=== PATIENT | male | born 1960 | race African-American/Black ===

== ENCOUNTER 2017-01-16 22:11 | Observation (INO) | payer OTHER, SELFPAY ==
[2017-01-16 22:53] LABS: Mean Platelet Volume 8.1 fL (7.4-10.4); Red Blood Cell (RBC) Count 3.62 mill/uL (4.70-6.10); White Blood Cell (WBC) Count 4.7 thou/uL (4.8-10.8)
[2017-01-16 22:58] LABS: Magnesium 1.8 mg/dL (1.6-2.6)
[2017-01-16 22:59] LABS: ALT (SGPT) 21 U/L (8-55); AST (SGOT) 40 U/L (5-34); Alkaline Phosphatase 56 U/L (40-150); Anion Gap 15 mmol/L (10-20); BUN (Urea Nitrogen) 10 mg/dL (8.4-25.7); Bilirubin, Total 0.4 mg/dL (0.2-1.2); Calc. Creatinine Clearance 0 mL/min (70-130); Calcium 10.1 mg/dL (7.8-10.44); Carbon Dioxide 23 mmol/L (22-29); Chloride 99 mmol/L (98-107); Estimated GFR-MDRD 77; Globulin 4.4 g/dL (2.4-3.5); Protein, Total 8.2 g/dL (6.0-8.3)
[2017-01-16 23:02] LABS: Troponin I 0.011 ng/mL (< 0.028)
--- NOTE | 2017-01-16 23:03 | RAD ---
PORTABLE AP CHEST X-RAY 01/16/17 HISTORY: Chest pain. FINDINGS: The cardiac silhouette and pulmonary vasculature are within normal limits. The lungs are clear. Ther e is focal eventration of a portion of the right hemidiaphragm. Osseous structures are intact. IMPRESSION: No acute cardiopulmonary process. POS: [facility]
[2017-01-16 23:11] LABS: Band 2 % (5-11); Neutrophil 37 % (42-75)
[2017-01-16] MEDS ORDERED: Nitroglycerin 2% Ointment 1 INCH/1 GM Packet ONE (23:15)
[2017-01-17] MEDS ORDERED: Ondansetron HCl/PF 4 MG/2 ML Vial IVP PRN ×2 (01:06→03:37)
[2017-01-17] MEDS ORDERED: Ondansetron ODT 4 MG TAB SL PRN (01:06)
[2017-01-17 02:10] LABS: Troponin I 0.012 ng/mL (< 0.028)
[2017-01-17 03:16] VITALS: BMI 27.9
[2017-01-17] MEDS ORDERED: Ondansetron ODT 4 MG TAB PO PRN (03:37)
[2017-01-17] MEDS ORDERED: cloNIDine HCl 0.1 MG TAB PO PRN (03:37)
[2017-01-17] MEDS ORDERED: Acetaminophen 500 MG TAB PO PRN (03:37)
[2017-01-17] MEDS ORDERED: Aspirin 325 MG TAB PO SCH ×2 (04:00→08:00)
--- NOTE | 2017-01-17 05:26 | HP ---
DATE OF ADMISSION: 01/17/2017 PRIMARY CARE PHYSICIAN: Rigo Daniels [place]. CHIEF COMPLAINT: Chest pain. HISTORY OF PRESENT ILLNESS: This is a 56-year-old -[place]ian male who presents to [facility] complaining of sharp burning sensation in the central portion of his chest, w hich began while lying in bed. The patient initially rated the pain as 8/10 without radiation. The patient states it lasted approximately 10-15 minutes with spontaneous resolution. The patient chari ed any specific trauma, injury, increased cough, congestion, or fever. The patient denies any recen t change to his activity level, epigastric pain, or change to bowel habits. The patient is unsure w hether he has reflux or heartburn symptoms. The patient denies any known history of coronary artery disease and states he has undergone no specific previous cardiac stress testing. The patient appar ently admits to history of hypertension but is not currently managed or treated as he has not sought followup after a recent admission to [facility] in 09/2016. In the emergenc y room, the patient underwent general evaluation receiving nitroglycerin topically in addition to as pirin 325 mg. EKG and portable chest x-ray were unremarkable. The patient was transferred to the o bservation unit for further evaluation. PAST MEDICAL HISTORY: 1. Question of diabetes mellitus type 2. 2. Hypertension, not currently treated. 3. Dyslipidemia. 4. Chronic hepatitis C. 5. Anxiety/depression. 6. Schizophrenia. 7. History of polysubstance abuse. PAST SURGICAL HISTORY: Reviewed and negative. CURRENT MEDICATIONS: Based on previous admissions 09/2016. List may not be accurate, will need to be confirmed with family members. 1. Allopurinol 100 mg 1 tab p.o. daily. 2. Lipitor 40 mg 1 tab p.o. daily. 3. Depakote ER 1000 mg p.o. b.i.d. 4. Haldol 15 mg p.o. b.i.d. 5. Hydrochlorothiazide 25 mg 1 tab p.o. daily. 6. Levothyroxine 150 mcg p.o. daily. 7. Lisinopril 40 mg p.o. daily. 8. Metoprolol tartrate 50 mg p.o. b.i.d. 9. Tegretol 200 mg p.o. b.i.d. 10. Metformin 500 mg p.o. b.i.d. ALLERGIES: No known drug allergies. FAMILY HISTORY: Positive for hypertension. SOCIAL HISTORY: Resides in [place], [place]. Unemployed. Previously incarcerated. Smokes up to half a pack of cigarettes daily. No current alcohol use. Prior history of cocaine and heroin use. No a lcohol use. REVIEW OF SYSTEMS: The following complete review of systems was negative, unless otherwise mentione d in the HPI or below: Constitutional: Weight loss or gain, sense of well-being, ability to conduc t usual activities, exercise tolerance. Skin/Breast: Rash, itching, changes in hair growth or loss , nail changes, breast lumps, tenderness, swelling, nipple discharge. Eyes: Vision, double vision, tearing, blind spots, pain. ENT/Mouth: Headaches (location, time of onset, duration, precipitatin g factors), vertigo, lightheadedness, injury. Vision, double vision, tearing, blind spots, pain, nos e bleeding, colds, obstruction, discharge, dental difficulties, gingival bleeding, dentures, neck st iffness, pain, tenderness, masses in thyroid or other areas. Cardiovascular: Precordial pain, subs ternal distress, palpitations, syncope, dyspnea on exertion, orthopnea, nocturnal paroxysmal dyspnea , edema, cyanosis, hypertension, heart murmurs, varicosities, phlebitis, claudication. Respiratory: Pain, shortness of breath, wheezing, stridor, cough, hemoptysis, fever or night sweats. Gastroint estinal: Poor appetite, dysphagia, indigestion, abdominal pain, heartburn, eructation, nausea, vomi ting, hematemesis, jaundice, constipation, or diarrhea, abnormal stools (devyn-colored, tarry, bloody , greasy, foul smelling), flatulence, hemorrhoids, recent changes in bowel habits. Genitourinary: Urgency, frequency, dysuria, nocturia, hematuria, polyuria, oliguria, unusual (or change in) color o f urine, stones, hesitancy, change in size of stream, dribbling, acute retention or incontinence, li tate, potency. Musculoskeletal: Pain, swelling, redness or heat of muscles or joints, limitation, of motion, muscu lar weakness, atrophy, cramps. Neurologic/Psychiatric: Convulsions, paralyses, tremor, incoordinat ion, paresthesias, difficulties with memory of speech, sensory or motor disturbances, or muscular co ordination (ataxia, tremor), emotional problems, anxiety, depression, previous psychiatric care, unu sual perceptions, hallucinations. Allergy/Immunologic: Skin rash, anemia, bleeding tendency, polyd ipsia, polyuria, intolerance to heat or cold. Otherwise, negative except as stated per HPI. PHYSICAL EXAMINATION: VITAL SIGNS: On admission, blood pressure 176/82, pulse 48, respiratory rate 16, temperature 97.6 degrees Fahrenheit, O2 saturation 99% on room air. GENERAL APPEARANCE: This is a 56-year-old -[place]ian male, alert and oriented x3, pleasant, a nd in no acute distress. HEENT: Pupils are equal, round, and reactive to light and accommodation. Extraocular muscles are i ntact. No scleral icterus. No conjunctival injection. Nares patent. OP is clear. Teeth in fair repair. NECK: Supple, no cervical adenopathy, no thyromegaly, no carotid bruits, no JVD appreciated. Cervi stu spine with full active and passive range of motion. CHEST: Lungs are clear to auscultation bilaterally. CARDIOVASCULAR: S1, S2, without noted murmur. ABDOMEN: Rounded, soft, nontender, nondistended. Bowel sounds are positive in all four quadrants. There is no hepatosplenomegaly, no abdominal bruits, no rebound or guarding appreciated. EXTREMITIES: Warm and dry with fair turgor. No clubbing, cyanosis, or asymmetric edema appreciated . Pulses are palpable distally at the dorsalis pedis, posterior tibial, and popliteal arteries bila terally. Capillary refill is less than 2 seconds. NEUROLOGIC: Cranial nerves II through XII are grossly intact. No focal or lateralizing signs appre ciated. PERTINENT LABORATORY AND X-RAY FINDINGS: Sodium 133, potassium 3.8, chloride 99, CO2 of 23, BUN 10, creatinine 1.17 with estimated GFR of 77, glucose 157, calcium 10.1, magnesium 1.8, AST 40, ALT of 21, alkaline phosphatase 56. Total CK 403, troponin I negative x2. Albumin 3.8. CBC showed a whit e blood cell count of 4.7, hemoglobin 11.8, hematocrit 35, MCV 97, platelet count 187 with 37% neutr ophils. Portable chest x-ray dated 01/16/2017 showed no acute cardiopulmonary process. EKG dated by my interpretation shows a sinus bradycardia with heart rates in the 50s. Attenuated R waves noted in the precordial leads. Normal axis. No acute ST-T wave changes appreciated. ASSESSMENT AND PLAN: 1. Chest pain. The patient will be observed on the telemetry unit. We will proceed with exercise Cardiolite stress testing in the a.m. Check fasting lipid profile. Continue aspirin 325 mg p.o. da shoaib. 2. Hyponatremia. Appears chronic. Likely secondary to HCTZ use. Repeat sodium level in the a.m. 3. Hypothyroidism. Check TSH and free T4 level. Resume home Synthroid regimen. 4. Chronic macrocytic anemia. Stable currently. No evidence to suggest acute blood loss. Serial monitoring. 5. Diabetes mellitus type 2. Insulin sliding scale for reflexive coverage. ADA diet. 6. Anxiety/depression/schizophrenia. Resume home regimen to include Depakote extended release 1000 mg p.o. b.i.d., Haldol 15 mg p.o. b.i.d. 7. Prophylaxis. Sequential compression devices while in bed. Pepcid 20 mg p.o. b.i.d. 8. Code status is FULL. Surrogate medical decision maker is Kinjal Amaral.
[2017-01-17] MEDS ORDERED: Levothyroxine Sodium 150 MCG TAB PO SCH (06:00)
[2017-01-17] MEDS ORDERED: carBAMazepine 200 MG TAB PO SCH (08:00)
[2017-01-17] MEDS ORDERED: Famotidine 20 MG TAB PO SCH (09:00)
[2017-01-17] MEDS ORDERED: Atorvastatin Calcium 40 MG TAB PO SCH (09:00)
[2017-01-17] MEDS ORDERED: Allopurinol 100 MG TAB PO SCH (09:00)
[2017-01-17] MEDS ORDERED: Lisinopril 20 MG TAB PO SCH (09:00)
[2017-01-17] MEDS ORDERED: Metoprolol Tartrate 50 MG TAB PO SCH (09:00)
[2017-01-17] MEDS ORDERED: Haloperidol 5 MG TAB PO SCH (09:00)
[2017-01-17] MEDS ORDERED: Hydrochlorothiazide 25 MG TAB PO SCH (09:00)
[2017-01-17 13:14] VITALS: BP 159/87; TEMP 97.8
[2017-01-17] MEDS ORDERED: ADENOSINE 60 MG/20 ML VIAL ONE (14:16)
--- NOTE | 2017-01-17 14:26 | NM ---
NUCLEAR MEDICINE CARDIAC PERFUSION EXAMINATION WITH EJECTION FRACTION: COMPARISON: None. HISTORY: A 56-year-old male with chest pain, hypertension, hyperlipidemia, and diabetes. TECHNIQUE: A single-day nuclear medicine cardiac perfusion examination was performed. Rest images were obtaine d using 10.05 mCi of Technetium 99m sestamibi. Stress images were obtained using 30 mCi of Techneti um 99m sestamibi and adenosine. FINDINGS: Tomographic images showed no fixed or reversible perfusion defects. Gated images show normal wall m otion with an ejection fraction of 67%. EDV is 111 mL. LHR is 0.4. TID is 1.05. IMPRESSION: No evidence of ischemia. POS: [facility]
--- NOTE | 2017-01-17 15:45 | DIS ---
DATE OF ADMISSION: 01/17/2017 DATE OF DISCHARGE: 01/17/2017 PRIMARY CARE PROVIDER: Zack Sierra. DISCHARGE DISPOSITION: Home. FINAL DIAGNOSES: Atypical chest pain, hypertension, diabetes mellitus type 2, schizophrenia, chroni c hepatitis C, dyslipidemia, hypothyroidism. DISCHARGE MEDICATIONS: Same as his home medicines, allopurinol 100 mg a day, aspirin 81 mg a day, a torvastatin 40 mg a day, Depakote 1000 mg twice a day, Haldol 50 mg p.o. b.i.d., hydrochlorothiazide 25 mg a day, Synthroid 150 mcg a day, lisinopril 40 mg a day, metoprolol 50 mg twice a day, Tegreto l 200 mg twice a day, Benadryl 50 mg at bedtime, metformin 500 mg twice a day. ALLERGIES: No known drug allergies, pending at the time of discharge. The patient admitted with an atypical chest pain to [facility]. Initial EKG, s inus bradycardia with no ST-T abnormality appreciated. LABORATORY AND DIAGNOSTIC DATA: Comp metabolic profile abnormal only an AST of 40, glucose 157, sod ium 133. Cardiac enzymes normal x3. Cholesterol studies: Cholesterol 138, LDL 96, HDL 25. Nuclea r medicine cardiac stress test was normal. The patient is being discharged. He has been told to fo llow up with his PCP in 1 week, Zack Sierra. CONSULTATIONS: None. PROCEDURES: None. Patient's vital signs at the time of discharge, blood pressure 135/74, pulse 63, respirations 18. C ardiorespiratory exam is normal.
== END 2017-01-17 16:01 | disposition home or self-care (01) ==
LOC: ERS 22:11 → 2SW 23:44
PROVIDERS: ADMIT Family Medicine; ATTEND Family Medicine
DX: R07.89 Other chest pain (principal); I10 Essential (primary) hypertension; B18.2 Chronic viral hepatitis C; E78.5 Hyperlipidemia, unspecified; E11.9 Type 2 diabetes mellitus without complications; E03.9 Hypothyroidism, unspecified; F20.9 Schizophrenia, unspecified; F41.9 Anxiety disorder, unspecified; F32.9 Major depressive disorder, single episode, unspecified; F17.210 Nicotine dependence, cigarettes, uncomplicated; F19.10 Other psychoactive substance abuse, uncomplicated; Z79.84 Long term (current) use of oral hypoglycemic drugs; Z79.899 Other long term (current) drug therapy
CPT/HCPCS: 36415; 36416; 71010; 78452; 80053; 80061; 82553; 83735; 84439; 84443; 84484; 85025; 93005; 93017; 94760; A9500; G0378; J0153

== ENCOUNTER 2018-02-05 15:15 | Inpatient (IN) | payer MEDICAID, OTHER ==
[2018-02-05] MEDS ORDERED: Naloxone HCl 0.4 mg/ml Vial ONE (15:40)
[2018-02-05 16:07] LABS: #Basophils 0.1 thou/uL (0.0-0.2); #Eosinphils 0.1 thou/uL (0.0-0.7); #Lymphocytes 1.2 thou/uL (1.20-3.40); #Monocytes 0.6 thou/uL (0.11-0.59); #Neutrophils 3.9 thou/uL (1.40-6.50); %Basophils 1.1 % (0.0-1.0); %Eosinophils 1.9 % (0.0-10.0); %Lymphocytes 20.9 % (21.0-51.0); %Monocytes 9.6 % (0.0-10.0); %Neutrophils 66.5 % (42.0-75.0); Hemoglobin 11.1 g/dL (14.0-18.0); Mean Corpuscular Hemoglobin 33.3 pg (27.0-31.0); Mean Platelet Volume 9.1 fL (7.4-10.4); Platelet Count 171 thou/uL (130-400); RBC Distribution Width 12.9 % (11.5-14.5); Red Blood Cell (RBC) Count 3.33 mill/uL (4.70-6.10); White Blood Cell (WBC) Count 5.8 thou/uL (4.8-10.8)
--- NOTE | 2018-02-05 16:16 | CT ---
CT OF THE BRAIN WITHOUT CONTRAST 02/05/18 COMPARISON: None. HISTORY: Altered mental status. TECHNIQUE: Multiple contiguous axial images were obtained in a CT of the brain without contrast. FINDINGS: The brain is normal in morphology and attenuation without focal lesions or confluent areas of infarct ion. There is no evidence of hydrocephalus, intracranial hemorrhage or extra-axial fluid collections. The calvarium and overlying soft tissues are unremarkable. The visualized paranasal sinuses and masto id air cells are well aerated. IMPRESSION: No evidence of acute intracranial abnormality. POS: [facility]
--- NOTE | 2018-02-05 16:19 | RAD ---
SINGLE VIEW CHEST: Date: 02/05/18 COMPARISON: 01/16/17. HISTORY: Back pain for 5 days. FINDINGS: Single view of the chest shows normal sized cardiomediastinal silhouette. There is no evidence of con solidation, mass, or pleural effusion. The bones are unremarkable. IMPRESSION: No evidence of acute cardiopulmonary disease. POS: [facility]
[2018-02-05 16:28] LABS: ALT (SGPT) 28 U/L (8-55); AST (SGOT) 81 U/L (5-34); Albumin 4.2 g/dL (3.5-5.0); Alkaline Phosphatase 50 U/L (40-150); Anion Gap 17 mmol/L (10-20); BUN (Urea Nitrogen) 51 mg/dL (8.4-25.7); Calc. Creatinine Clearance 0 mL/min (70-130); Calcium 10.1 mg/dL (7.8-10.44); Carbon Dioxide 17 mmol/L (22-29); Chloride 105 mmol/L (98-107); Estimated GFR-MDRD 28; Globulin 4.3 g/dL (2.4-3.5); Glucose 73 mg/dL (70-105); Potassium 4.9 mmol/L (3.5-5.1); Protein, Total 8.5 g/dL (6.0-8.3); Sodium 134 mmol/L (136-145)
[2018-02-05 16:32] LABS: Bilirubin Small (Negative); Blood, Urine Small (Negative); Clarity CLEAR (Clear); Glucose, Urine (Dipstick) Negative (Negative); Leukocyte Trace (Negative); Nitrite Negative (Negative); Protein, Urine (Dipstick) Negative (Neg-Trace); Specific Gravity, Urine 1.021 (1.002-1.036); pH, Urine 5.5 (5.0-9.0)
[2018-02-05 16:35] LABS: Bacteria/HPF None Seen HPF (None Seen); Pathc Cast-AUWi Flag 0.72 (0-2.49); RBC/HPF 0-3 HPF (0-3); Squamous Epithelial 0-3 HPF (0-3); WBC/HPF 0-3 HPF (0-3)
[2018-02-05 16:42] LABS: Amphetamine Not Detected (NotDetected); Barbiturates Screen Not Detected (NotDetected); Benzodiazepine Screen Not Detected (NotDetected); Cocaine Metabolite Screen Not Detected (NotDetected); Medtox Control Line Valid? VALID (VALID); Medtox Reader # READER 1; Methadone Not Detected (NotDetected); Methamphetamine Not Detected (NotDetected); Opiate Screen Not Detected (NotDetected); Oxycodone Screen Not Detected (NotDetected); Phencyclidine (PCP) Not Detected (NotDetected); THC/Cannabinoid Screen Not Detected (NotDetected); Tricyclic Screen Not Detected (NotDetected)
[2018-02-05 16:47] LABS: Transitional Epithelial 0-3 HPF (0-3)
[2018-02-05 17:21] LABS: Acetaminophen Less than 6.0 mcg/mL (10.0-30.0); Alcohol Less than 10 mg/dL (Less than 10); CK (CPK) 2293 U/L (30-200); Salicylate Less than 8.0 mg/dL (15.0-30.0)
[2018-02-05] MEDS ORDERED: Ondansetron PF 4 MG/2 ML Vial IVP PRN (20:04)
[2018-02-05] MEDS ORDERED: Dextrose 5% in Water 1,000 ML IV PRN (20:04)
[2018-02-05] MEDS ORDERED: HumaLOG 300 UNITS/3 ML VIAL SC PRN ×2 (20:04)
[2018-02-05] MEDS ORDERED: Lorazepam 2 MG/ML VIAL SLOW IVP PRN (20:04)
[2018-02-05] MEDS ORDERED: Ondansetron ODT 4 MG TAB PO PRN (20:04)
[2018-02-05] MEDS ORDERED: hydrALAZINE 20 MG/ML VIAL SLOW IVP PRN ×2 (20:04→22:38)
[2018-02-05] MEDS ORDERED: Dextrose 50% Abboject 50 ML SYRINGE SLOW IVP PRN (20:04)
[2018-02-05] MEDS ORDERED: Acetaminophen 500 MG TAB PO PRN (20:04)
[2018-02-05] MEDS ORDERED: cloNIDine 0.1 MG TAB PO PRN (20:04)
[2018-02-05] MEDS ORDERED: Famotidine 20 MG TAB PO SCH (21:00)
[2018-02-05] MEDS: Sodium Chloride 0.9% 1,000 ML IV SCH (21:23)
[2018-02-05] MEDS: Famotidine 20 MG TAB PO SCH (21:24)
[2018-02-05] MEDS ORDERED: Divalproex Sodium DR 500 MG TAB PO SCH (22:45)
[2018-02-05] MEDS ORDERED: OLANZapine 5 MG TAB PO SCH (22:45)
--- NOTE | 2018-02-06 01:05 | HP ---
DATE OF ADMISSION: 02/05/2018 PRIMARY CARE PHYSICIAN: Jeremiah in [place], [place]. CHIEF COMPLAINT: Altered mentation. HISTORY OF PRESENT ILLNESS: This is a 57-year-old -[place]ian male who presents to [facility] Emergency Department after family noted the patient confused and difficult to arouse. The hi story is mainly obtained after discussions with the emergency room attending as well as review of the electronic medical record and nursing staff as the patient exhibits confusion and disorientation. T he patient reports no specific injury, change to medication regimen, illicit drug use or alcohol pablo stion. Apparently, the patient lives with his sister in [place], [place] and is currently on parole. Th e sister noted the patient walking with an unusual gait, stooped over and having difficulty ambulatin g. The patient apparently became more confused and difficult to arouse at which point EMS personnel were notified. The patient does not recall arriving to the emergency room or events transpiring just prior to this evaluation. Initially in the emergency room, patient was noted with a [place] coma sc ana paula of 11 increasing to 13 during his evaluation in the emergency room. The patient underwent evalua tion including metabolic screening including urine drug screen which was negative. The patient was n oted with elevated creatinine of 2.[address] imaging of the brain showed no acute intracranial proces s. The patient was placed on IV fluids and received Narcan with minimal response or change to mentat ion. The patient currently states he is in [place], [place] at [place] where he was born. PAST MEDICAL HISTORY: 1. Question of schizophrenia. 2. Diabetes mellitus type 2. 3. Hypertension. 4. Dyslipidemia. 5. Chronic hepatitis C. 6. Anxiety/depression. 7. History of polysubstance abuse. 8. History of alcohol abuse. 9. History of incarceration, currently on parole. PAST SURGICAL HISTORY: Reviewed and negative. CURRENT MEDICATIONS: 1. Depakote 500 mg 2 tabs p.o. b.i.d. 2. Hydrochlorothiazide 25 mg p.o. daily. 3. Lisinopril 40 mg p.o. daily. 4. Levothyroxine 150 mcg p.o. daily. 5. Olanzapine 15 mg p.o. at bedtime. 6. Aspirin 81 mg p.o. daily. 7. Metoprolol succinate 100 mg p.o. daily. 8. Ferrous sulfate 325 mg p.o. daily. ALLERGIES: No known drug allergies. FAMILY HISTORY: Positive for hypertension. SOCIAL HISTORY: Resides in [place], [place] living with his sister. Unemployed and on parole. Smokes u p to half a pack of cigarettes daily. Denies current alcohol or illicit drug use; however, with a st va prior history of illicit drug use including marijuana, amphetamines and cocaine. REVIEW OF SYSTEMS: Unobtainable due to patient's altered mentation and confusion. PHYSICAL EXAMINATION: VITAL SIGNS: Currently, blood pressure 111/62, pulse 65, respiratory rate 18, temperature 98.0 degre es Fahrenheit, O2 saturation 98% on room air. GENERAL APPEARANCE: This is a 57-year-old -[place]ian male, alert and oriented x2, pleasant, re sponse to questions, in no acute distress. HEENT: Pupils are equal, round, and reactive to light and accommodation. Extraocular muscles are in tact. No scleral icterus, no conjunctival injection. Nares patent. OP is clear. Teeth in poor rep air. NECK: Supple, no cervical adenopathy, no thyromegaly, no carotid bruits. JVD noted. Cervical spine with full active and passive range of motion. CHEST: Lungs are clear to auscultation bilaterally. CARDIOVASCULAR: S1, S2, without noted murmur, rub or gallop. ABDOMEN: Rounded, soft, nontender, nondistended. Bowel sounds are positive in all four quadrants. No hepatosplenomegaly, no abdominal bruits, no rebound or guarding appreciated. EXTREMITIES: Warm and dry with fair turgor. No clubbing, cyanosis or asymmetric edema appreciated. Pulses palpable distally at the dorsalis pedis, posterior tibial, and popliteal arteries bilaterally . Capillary refill less than 2 seconds. NEUROLOGIC: Cranial nerves II-XII are grossly intact. Not observed ambulatory during this exam. Al ert and oriented x2. PERTINENT LABORATORY AND X-RAY FINDINGS: Sodium 134, potassium 4.9, chloride 105, CO2 of 17, BUN 51, creatinine 2.81, estimated GFR of 28, glucose 73, calcium 10.1, AST 81, ALT 28, alkaline phosphatase 50, total CK 2293. Albumin 4.2. TSH 12.41. CBC showed a white blood cell count of 5.8, hemoglobin 11, hematocrit 34, platelet count 171 with 67% neutrophils. Urinalysis showed trace ketones, trace leukocyte esterase with 4-6 renal epithelial cells and 11-20 hyaline casts. Urine drug screen dated 02/05/2018 negative. Valproic acid level 116.1. Plasma alcohol level less than 10. CT of the brain without contrast dated 02/05/2018 showed no acute intracranial process. Portable chest x-ray dated 02/05/2018 showed no acute cardiopulmonary process. EKG dated 02/05/2018 by my interpretation shows sinus mechanism with heart rates in the 60s. Attenuated R waves noted in the precordial leads. Norm al axis. No acute ST-T wave changes noted. ASSESSMENT AND PLAN: 1. Acute encephalopathy. Likely metabolic in nature. We will continue to monitor clinical response to supportive measures. We will continue IV fluids with normal saline at 100 mL per hour. Continue serial neuro checks. Check free T4 level and magnesium level. Questionable influence from known ps ychiatric diagnosis. 2. Acute kidney injury. We will continue intravenous normal saline 100 mL per hour. Avoid nephroto xic agents and limit contrast exposure. Repeat creatinine in the a.m. 3. Metabolic acidosis. Suspect secondarily to #2. We will continue IV fluids as outlined previousl y and repeat CO2 level in the a.m. 4. Rhabdomyolysis. Etiology unclear. We will continue IV fluids as outlined previously and monitor total creatine kinase trend. 5. Hypothyroidism. We will check free T4 level in the a.m. Confirm home levothyroxine dosing. 6. Hypertension. Confirm home antihypertensive regimen and resume blood pressure medications once c onfirmed. Clonidine and hydralazine p.r.n. 7. Prophylaxis. Sequential compression devices while in bed. Pepcid 20 mg p.o. b.i.d. 8. Physical therapy evaluation in the a.m. for functional assessment. 9. Code status is FULL. Surrogate medical decision maker is patient's sister.
[2018-02-06 02:06] VITALS: BMI 27.1
[2018-02-06 05:52] LABS: Hemoglobin A1c 5.4 % (4.0-6.0)
[2018-02-06 05:58] LABS: Band 2 % (5-11); Eosinophils 2 % (0-10); Hemoglobin 10.4 g/dL (14.0-18.0); Lymphocytes 46 % (21-51); MDiff Complete? YES; Mean Corpuscular HGB CONC 31.6 g/dL (32.0-36.0); Mean Corpuscular Hemoglobin 32.1 pg (27.0-31.0); Mean Platelet Volume 9.2 fL (7.4-10.4); Monocytes 11 % (0-10); Neutrophil 39 % (42-75); PLT Morphology Comment Appears Adequate; Platelet Count 160 thou/uL (130-400); Red Blood Cell (RBC) Count 3.24 mill/uL (4.70-6.10); White Blood Cell (WBC) Count 5.9 thou/uL (4.8-10.8)
[2018-02-06] MEDS ORDERED: Levothyroxine 150 MCG TAB PO SCH (06:00)
[2018-02-06 06:08] LABS: ALT (SGPT) 37 U/L (8-55); AST (SGOT) 151 U/L (5-34); Albumin 3.5 g/dL (3.5-5.0); Alkaline Phosphatase 44 U/L (40-150); Anion Gap 13 mmol/L (10-20); BUN (Urea Nitrogen) 45 mg/dL (8.4-25.7); Bilirubin, Total 1.1 mg/dL (0.2-1.2); Calc. Creatinine Clearance 56 mL/min (70-130); Calcium 9.4 mg/dL (7.8-10.44); Carbon Dioxide 20 mmol/L (22-29); Chloride 107 mmol/L (98-107); Estimated GFR-MDRD 49; Globulin 3.3 g/dL (2.4-3.5); Glucose 84 mg/dL (70-105); Magnesium 2.4 mg/dL (1.6-2.6); Potassium 4.7 mmol/L (3.5-5.1); Protein, Total 6.8 g/dL (6.0-8.3); Sodium 135 mmol/L (136-145)
[2018-02-06 06:24] LABS: CK (CPK) 7828 U/L (30-200)
[2018-02-06] MEDS: Sodium Chloride 0.9% 1,000 ML IV SCH ×2 (08:42→20:50)
[2018-02-06] MEDS: Ferrous Sulfate 325 MG TAB PO SCH (08:42)
[2018-02-06] MEDS: Metoprolol Tartrate 100 MG TAB PO SCH (08:42)
[2018-02-06] MEDS ORDERED: Prevnar 13-Val Conj/PF 0.5 ML SYRINGE IM ONE (09:00)
[2018-02-06] MEDS ORDERED: Divalproex Sodium DR 500 MG TAB PO SCH (09:00)
[2018-02-06] MEDS ORDERED: Aspirin 81 mg Enteric Coated Tablet PO SCH (09:00)
--- NOTE | 2018-02-06 11:27 | PDOC.PN ---
- Subjective Encounter Start Date: 02/06/18 Encounter Start Time: 11:15 Subjective: f/u for encephalopathy of unclear etiology, rhabdomyolysis and JOEL. -: Feels better overall and mentally clearer today. Appetite ok. Wants to -: go outside and smoke. - Objective Resuscitation Status: Resuscitation Status FULL:Full Resuscitation MAR Reviewed: Yes Vital Signs & Weight: Vital Signs (12 hours) Temp Pulse Resp BP Pulse Ox 02/06/18 08:00 95 02/06/18 07:36 98.8 F 65 16 119/59 L 95 02/06/18 04:00 97.5 F L 63 18 116/63 98 02/06/18 00:00 97.8 F 68 16 109/68 98 Weight Weight 189 lb 8 oz Result Diagrams: 02/06/18 05:10 02/06/18 05:10 Additional Labs: Accuchecks 02/06/18 02/06/18 02/05/18 10:40 05:58 21:50 POC Glucose 104 95 139 H 02/05/18 15:31 POC Glucose 81 Laboratory Tests 02/05/18 02/05/18 02/05/18 15:58 15:58 15:58 Hgb 11.1 L MCV 101.0 H Carbon Dioxide 17 L Creatinine 2.81 H Hemoglobin A1c Magnesium Ammonia Creatine Kinase TSH 3rd Generation 12.4088 H Valproic Acid 02/05/18 02/05/18 02/05/18 15:58 16:20 17:10 Hgb MCV Carbon Dioxide Creatinine Hemoglobin A1c Magnesium Ammonia 35 Creatine Kinase 2293 H TSH 3rd Generation Valproic Acid 116.1 H 02/06/18 02/06/18 05:10 05:10 Hgb MCV Carbon Dioxide Creatinine Hemoglobin A1c 5.4 Magnesium 2.4 Ammonia Creatine Kinase 7828 H TSH 3rd Generation Valproic Acid EKG Reviewed by me: Yes (Tele - SR) Phys Exam - Physical Examination Constitutional: NAD HEENT: PERRLA, sclera anicteric, oral pharynx no lesions Neck: no nodes, no JVD, supple, full ROM Respiratory: no wheezing, no rales, no rhonchi, clear to auscultation bilateral S1, S2 Cardiovascular: RRR, no significant murmur, no rub, gallop Gastrointestinal: soft, non-tender, no distention, positive bowel sounds Musculoskeletal: no edema, pulses present Neurological: normal sensation, moves all 4 limbs Psychiatric: A&O x 3 Skin: no rash, normal turgor, cap refill <2 seconds Dx/Plan (1) Acute metabolic encephalopathy Code(s): G93.41 - METABOLIC ENCEPHALOPATHY Status: Acute Comment: ? etiology and likely multifactorial given dehydration and metabolic influence, improved, continue supportive mgmt (2) Dehydration Code(s): E86.0 - DEHYDRATION Status: Acute Comment: continue IVF's, encourage increased po free-H2O intake (3) Rhabdomyolysis Code(s): M62.82 - RHABDOMYOLYSIS Status: Acute Comment: ? etiology, ? falls , continue IVF's, repeat CK level at 1500 today and in am (4) JOEL (acute kidney injury) Code(s): N17.9 - ACUTE KIDNEY FAILURE, UNSPECIFIED Status: Acute Comment: Improved, continue IVF's, avoid nephrotoxic meds and limit contrast exposure (5) Metabolic acidosis Code(s): E87.2 - ACIDOSIS Status: Acute Comment: Improved, due to JOEL (6) Anxiety and depression Code(s): F41.9 - ANXIETY DISORDER, UNSPECIFIED; F32.9 - MAJOR DEPRESSIVE DISORDER, SINGLE EPISODE, UNSPECIFIED Status: Chronic Comment: Resume home psychotropes (7) Hypertension Code(s): I10 - ESSENTIAL (PRIMARY) HYPERTENSION Status: Chronic Qualifiers: Hypertension type: essential hypertension Qualified Code(s): I10 - Essential (primary) hypertension Comment: Stable, resume home BP regimen but hold HCTZ, Lisinopril (8) Hypothyroidism Code(s): E03.9 - HYPOTHYROIDISM, UNSPECIFIED Status: Chronic Comment: ? control with current Levothyroxine dose, check FT4 level - Plan PT/OT, social sciences lecturer, out of bed/ambulate Stable currently -: Hold HCTZ and Lisinopril -: OOB/ambulate -: Continue IVF NS 100ml/h -: AM lab: BMP, CK, FT4 * .
[2018-02-06] MEDS: Famotidine 20 MG TAB PO SCH (20:51)
[2018-02-06] MEDS ORDERED: OLANZAPINE 15 MG PO SCH (21:00)
[2018-02-06] MEDS ORDERED: OLANZapine 5 MG TAB PO SCH (21:00)
[2018-02-07 05:46] LABS: Anion Gap 13 mmol/L (10-20); BUN (Urea Nitrogen) Less than 4 mg/dL (8.4-25.7); Calc. Creatinine Clearance 77 mL/min (70-130); Carbon Dioxide 21 mmol/L (22-29); Chloride 104 mmol/L (98-107); Estimated GFR-MDRD 71; Glucose 91 mg/dL (70-105); Potassium 4.4 mmol/L (3.5-5.1); Sodium 134 mmol/L (136-145)
[2018-02-07 05:59] LABS: CK (CPK) 7360 U/L (30-200)
[2018-02-07 06:21] LABS: Hypochromia SLIGHT = 6-15 cells (100X) (0-5/hpf); Lymphocytes 70 % (21-51); MDiff Complete? YES; Macrocytosis SLIGHT = 6-15 cells (100X) (0-5/hpf); Mean Corpuscular HGB CONC 32.3 g/dL (32.0-36.0); Mean Corpuscular Hemoglobin 32.6 pg (27.0-31.0); Monocytes 4 % (0-10); Neutrophil 26 % (42-75); PLT Morphology Comment Appears Adequate; Platelet Count 160 thou/uL (130-400); Polychromasia SLIGHT = 2-3 cells (100X) (0-2/hpf); RBC Distribution Width 12.8 % (11.5-14.5); Red Blood Cell (RBC) Count 3.38 mill/uL (4.70-6.10); White Blood Cell (WBC) Count 4.2 thou/uL (4.8-10.8)
--- NOTE | 2018-02-07 07:40 | CON ---
DATE OF CONSULTATION: 02/06/2018 NEPHROLOGY CONSULTATION CONSULTING PHYSICIAN: Dr. Dylan Back. REASON FOR CONSULTATION: Acute kidney injury. REASON FOR ADMISSION: Altered mentation. HISTORY OF PRESENT ILLNESS: A 57-year-old male with history of schizophrenia, type 2 diabetes, hyper tension came to the hospital with altered mentation and was found to have elevated creatinine and Nep hrology is consulted. Patient's creatinine was 2.8, he got better to 1.7 with hydration. Patient is feeling better. No nausea, vomiting, no chest pain, palpitation. PAST MEDICAL HISTORY: Positive for schizophrenia, type 2 diabetes, hypertension, hyperlipidemia, hep atitis C, anxiety, depression, polysubstance abuse, alcohol abuse. PAST SURGICAL HISTORY: None. CURRENT MEDICATIONS: Depakote, hydrochlorothiazide, lisinopril, levothyroxine, olanzapine, aspirin, metoprolol, ferrous sulfate. ALLERGIES: No known drug allergies. FAMILY HISTORY: Positive for hypertension. SOCIAL HISTORY: No smoking, alcohol, or illicit drug abuse. REVIEW OF SYSTEMS: The following complete review of systems was negative, unless otherwise mentioned in the HPI or below: Constitutional: Weight loss or gain, ability to conduct usual activities. Sk in: Rash, itching. Eyes: Double vision, pain. ENT/Mouth: Nose bleeding, neck stiffness, pain, te nderness. Cardiovascular: Palpitations, dyspnea on exertion, orthopnea. Respiratory: Shortness of breath, wheezing, cough, hemoptysis, fever, or night sweats. Gastrointestinal: Poor appetite, abdo mercedes pain, heartburn, nausea, vomiting, constipation, or diarrhea. Genitourinary: Urgency, frequen cy, dysuria, nocturia. Musculoskeletal: Pain, swelling. Neurologic/Psychiatric: Anxiety, depressi on. Allergy/Immunologic: Skin rash, bleeding tendency. PHYSICAL EXAMINATION: GENERAL: This is a thin-built male in no apparent distress. VITAL SIGNS: Temperature 97.7, pulse 70, respirations 16, blood pressure 136/69. HEENT: Atraumatic, normocephalic. Oral mucosa is moist. NECK: Supple, no masses. HEART: S1, S2, regular. RESPIRATORY: Clear. ABDOMEN: Soft. MUSCULOSKELETAL: 1+ edema. DERMATOLOGIC: No skin rash. NEUROLOGIC: Alert, awake. PSYCHIATRIC: Normal mood and affect. LABORATORY DATA: Hemoglobin is 10.4. Potassium is 4.7, BUN is 45, creatinine 1.7. ASSESSMENT AND PLAN: 1. Acute kidney injury, much better. Continue hydration. 2. Edema, controlled. 3. Hypertension, stable. 4. Anemia, chronic. 5. Continue hydration, avoid nephrotoxins. We will follow. Thank you for the consult.
[2018-02-07] MEDS: Metoprolol Tartrate 100 MG TAB PO SCH (08:10)
[2018-02-07] MEDS: Ferrous Sulfate 325 MG TAB PO SCH (08:10)
[2018-02-07] MEDS ORDERED: Non-Formulary Item 1 EACH (Ferrous Sulfate [Ferosul] 325 MG) PO SCH (09:00)
[2018-02-07] MEDS ORDERED: Levothyroxine 150 MCG TAB PO SCH (09:00)
[2018-02-07] MEDS ORDERED: Aspirin 81 mg Enteric Coated Tablet PO SCH (09:00)
[2018-02-07] MEDS ORDERED: Metoprolol Tartrate 50 MG TAB PO SCH (09:00)
--- NOTE | 2018-02-07 10:56 | DIS ---
DATE OF ADMISSION: 02/05/2018 DATE OF DISCHARGE: 02/07/2018 DISCHARGE DIAGNOSES: 1. Acute metabolic encephalopathy, multifactorial, resolved. 2. Dehydration, resolving. 3. Acute rhabdomyolysis, multifactorial including recent fall. 4. Acute kidney injury, resolved. 5. Metabolic acidosis, secondary to acute kidney injury, resolving. 6. Anxiety/depression, stable. 7. Hypertension, stable. 8. Hypothyroidism, stable. CONSULTATIONS: Dr. Horne with Nephrology service. PERTINENT LABORATORY AND X-RAY FINDINGS: Creatinine ranged between 1.26-2.81, estimated GFR ranged b etween 28-71. Hemoglobin A1c 5.4, calcium 10.0. Magnesium level 2.4, AST 81, ALT 28, alkaline phosp hatase 50, total CK ranged between 5316-9181. TSH 12.4, free T4 level 1.19. CBC showed a hemoglobin ranging between 10.4-11.0. Urine drug screen dated 02/05/2018 showed valproic acid level 116.1. Pl asma alcohol level less than 10. CT of the brain without contrast dated 02/05/2018 showed no acute i ntracranial process. Portable chest x-ray dated 02/05/2018 showed no acute cardiopulmonary process. HOSPITAL COURSE: The patient was initially admitted to the telemetry unit after presenting with alte red mentation in the context of multiple metabolic derangements including dehydration and acute kidne y injury and status post an apparent fall. The patient was placed on IV fluids after metabolic scree miguelangel showed evidence of acute kidney injury with associated dehydration and rhabdomyolysis. The clayton ent continued on IV fluids throughout his hospital course with stabilization of renal function and im proving creatinine. The patient was evaluated by the Nephrology Service; however, no specific acute intervention was recommended other than IV fluid hydration. The patient's mentation had improved wit h supportive management and the patient's total CK level had improved with IV fluids. Telemetry [facility]ro [facility] showed sinus mechanism without acute arrhythmia or dysrhythmia. The patient was noted voiding appropriately, tolerating regular oral intake, and ambulating without assistance or difficulty. I richard arayae examined the patient at the time of discharge and discussed followup instructions. The patient v erbalized understanding and in agreement and ready for discharge on 02/07/2018. DISCHARGE MEDICATIONS: 1. Enteric-coated aspirin 81 mg p.o. daily. 2. Depakote ER 1000 mg p.o. b.i.d. 3. Feosol 325 mg p.o. daily. 4. Synthroid 150 mcg p.o. daily. 5. Metoprolol tartrate 100 mg p.o. daily. 6. Olanzapine 15 mg p.o. at bedtime. 7. Hydrochlorothiazide 25 mg p.o. daily, resume on 02/09/2018. 8. Lisinopril 40 mg 1 tab p.o. daily, resume on 02/09/2018. FOLLOWUP: The patient will follow up with [facility] in [place], [place], within 7 days of discharge. CONDITION ON DISCHARGE: Stable. ACTIVITY: Ad susy. DIET: Heart healthy. CODE STATUS: FULL. DISPOSITION: Home, 02/07/2018.
[2018-02-07] MEDS: Sodium Chloride 0.9% 1,000 ML IV SCH (11:18)
[2018-02-07 11:28] VITALS: BP 137/105; TEMP 97.8
--- NOTE | 2018-02-07 17:50 | PRG ---
DATE OF SERVICE: 02/07/2018 SUBJECTIVE: Patient was seen and examined at bedside and overnight events noted. Patient denies any shortness of breath or chest pain or palpitation. No history of nausea or vomiting or diarrhea or f ever or chills or cramps. OBJECTIVE: GENERAL: This is a well-built male in no apparent distress. VITAL SIGNS: Temperature 97.8, pulse 70, respiratory rate 19, blood pressure 137/104. HEENT: Atraumatic, normocephalic. Oral mucosa is moist. NECK: Supple. CARDIOVASCULAR: S1, S2 heard. Rate and rhythm regular. RESPIRATORY: Clear to auscultation. GASTROINTESTINAL: Abdomen is soft. MUSCULOSKELETAL: No tenderness. No edema. DERMATOLOGIC: No skin rash. NEUROLOGIC: Alert and awake and oriented x3. No focal neurologic deficits. Moving all the extremiti es. PSYCHIATRIC: Mood and affect normal. LABORATORY DATA: Potassium 4.4, creatinine is 1.2. ASSESSMENT AND PLAN: 1. Acute kidney injury, much better. 2. Hypertension, stable. 3. Edema. 4. Labs are stable. Avoid nephrotoxins.
== END 2018-02-07 13:35 | disposition home or self-care (01) | DRG 71 ==
LOC: ERS 15:15 → 2NO 17:20
PROVIDERS: ADMIT Family Medicine; ATTEND Family Medicine
DX: G93.41 Metabolic encephalopathy (principal); N17.9 Acute kidney failure, unspecified; M62.82 Rhabdomyolysis; E87.2 Acidosis; E03.9 Hypothyroidism, unspecified; I10 Essential (primary) hypertension; E11.9 Type 2 diabetes mellitus without complications; E78.5 Hyperlipidemia, unspecified; B18.2 Chronic viral hepatitis C; F41.9 Anxiety disorder, unspecified; F32.9 Major depressive disorder, single episode, unspecified; E86.0 Dehydration; D64.9 Anemia, unspecified
CPT/HCPCS: 36415; 36416; 51701; 70450; 71045; 80048; 80053; 80164; 80306; 80307; 81003; 81015; 82140; 82550; 83036; 83735; 84439; 84443; 85007; 85025; 85027; 90471; 90686; 93005; 94760; 96361; 96374; G0008; G8978-GP-CL; G8979-GP-CK; J2310

== ENCOUNTER 2018-02-10 12:54 | Emergency (ER) | payer OTHER ==
[2018-02-10 14:08] LABS: Hemoglobin 10.2 g/dL (14.0-18.0); Mean Corpuscular HGB CONC 32.6 g/dL (32.0-36.0); Mean Corpuscular Hemoglobin 33.1 pg (27.0-31.0); Mean Platelet Volume 8.9 fL (7.4-10.4); Platelet Count 143 thou/uL (130-400); RBC Distribution Width 12.7 % (11.5-14.5); Red Blood Cell (RBC) Count 3.08 mill/uL (4.70-6.10); White Blood Cell (WBC) Count 4.5 thou/uL (4.8-10.8)
[2018-02-10 14:19] LABS: Band 2 % (5-11); Eosinophils 3 % (0-10); Lymphocytes 36 % (21-51); MDiff Complete? YES; Macrocytosis SLIGHT = 6-15 cells (100X) (0-5/hpf); Monocytes 7 % (0-10); Neutrophil 52 % (42-75); Ovalocytes SLIGHT = 2-5 cells (100X) (0-1/hpf); PLT Morphology Comment Appears Adequate; Polychromasia SLIGHT = 2-3 cells (100X) (0-2/hpf); Tear Drops SLIGHT = 2-5 cells (100X) (0-1/hpf)
[2018-02-10 14:25] LABS: Troponin I Less than 0.010 ng/mL (< 0.028)
[2018-02-10 14:27] LABS: CKMB 48.6 ng/mL (0-6.6)
[2018-02-10 14:28] LABS: ALT (SGPT) 44 U/L (8-55); AST (SGOT) 99 U/L (5-34); Albumin 3.7 g/dL (3.5-5.0); Alkaline Phosphatase 46 U/L (40-150); Anion Gap 12 mmol/L (10-20); BUN (Urea Nitrogen) 17 mg/dL (8.4-25.7); Bilirubin, Total 0.9 mg/dL (0.2-1.2); Calc. Creatinine Clearance 0 mL/min (70-130); Calcium 9.9 mg/dL (7.8-10.44); Carbon Dioxide 22 mmol/L (22-29); Chloride 102 mmol/L (98-107); Estimated GFR-MDRD 72; Globulin 3.6 g/dL (2.4-3.5); Glucose 87 mg/dL (70-105); Lipase 82 U/L (8-78); Potassium 4.4 mmol/L (3.5-5.1); Protein, Total 7.3 g/dL (6.0-8.3); Sodium 132 mmol/L (136-145)
--- NOTE | 2018-02-10 14:32 | RAD ---
PORTABLE AP CHEST RADIOGRAPH: Date: 02-10-18 History: Chest pain. Patient has pressure in the chest with onset of symptoms this morning. Comparison: 02-05-18 FINDINGS: This examination was obtained in a better depth of inspiration. The lungs are clear on today's exam. The cardiac silhouette and pulmonary vasculature are within normal limits. Osseous structures are int act. IMPRESSION: No acute cardiopulmonary process. POS: [facility]
== END 2018-02-10 15:30 | disposition home or self-care (01) ==
LOC: ERS 12:54
DX: R51 Headache (principal); R07.9 Chest pain, unspecified; G25.1 Drug-induced tremor; T43.4X5A Adverse effect of butyrophenone and thiothixene neuroleptics, initial encounter; E11.9 Type 2 diabetes mellitus without complications; I10 Essential (primary) hypertension; F32.9 Major depressive disorder, single episode, unspecified; F41.9 Anxiety disorder, unspecified; F20.9 Schizophrenia, unspecified; F17.210 Nicotine dependence, cigarettes, uncomplicated
CPT/HCPCS: 36415; 71045; 80053; 82553; 83690; 84484; 85025; 93005

== ENCOUNTER 2018-02-13 19:19 | Emergency (ER) | payer OTHER ==
[2018-02-13 20:46] LABS: Bilirubin Negative (Negative); Blood, Urine Negative (Negative); Clarity CLEAR (Clear); Glucose, Urine (Dipstick) Negative (Negative); Leukocyte Negative (Negative); Nitrite Negative (Negative); Protein, Urine (Dipstick) Negative (Neg-Trace); Specific Gravity, Urine 1.009 (1.002-1.036); pH, Urine 5.5 (5.0-9.0)
[2018-02-13 20:59] LABS: Amphetamine Not Detected (NotDetected); Barbiturates Screen Not Detected (NotDetected); Benzodiazepine Screen Not Detected (NotDetected); Cocaine Metabolite Screen Not Detected (NotDetected); Medtox Control Line Valid? VALID (VALID); Medtox Reader # READER 1; Methadone Not Detected (NotDetected); Methamphetamine Not Detected (NotDetected); Opiate Screen Not Detected (NotDetected); Oxycodone Screen Not Detected (NotDetected); Phencyclidine (PCP) Not Detected (NotDetected); THC/Cannabinoid Screen Not Detected (NotDetected); Tricyclic Screen Not Detected (NotDetected)
[2018-02-13 21:12] LABS: Hemoglobin 11.1 g/dL (14.0-18.0); Mean Corpuscular HGB CONC 32.2 g/dL (32.0-36.0); Mean Corpuscular Hemoglobin 32.9 pg (27.0-31.0); Mean Platelet Volume 8.4 fL (7.4-10.4); Platelet Count 197 thou/uL (130-400); RBC Distribution Width 12.9 % (11.5-14.5); Red Blood Cell (RBC) Count 3.38 mill/uL (4.70-6.10); White Blood Cell (WBC) Count 5.4 thou/uL (4.8-10.8)
[2018-02-13 21:29] LABS: ALT (SGPT) 32 U/L (8-55); AST (SGOT) 71 U/L (5-34); Albumin 3.9 g/dL (3.5-5.0); Alkaline Phosphatase 48 U/L (40-150); Anion Gap 13 mmol/L (10-20); BUN (Urea Nitrogen) 20 mg/dL (8.4-25.7); Bilirubin, Total 0.7 mg/dL (0.2-1.2); CK (CPK) 1773 U/L (30-200); Calc. Creatinine Clearance 0 mL/min (70-130); Calcium 9.8 mg/dL (7.8-10.44); Carbon Dioxide 21 mmol/L (22-29); Chloride 101 mmol/L (98-107); Estimated GFR-MDRD 58; Globulin 4.2 g/dL (2.4-3.5); Glucose 76 mg/dL (70-105); Protein, Total 8.1 g/dL (6.0-8.3); Sodium 131 mmol/L (136-145)
[2018-02-13 21:37] LABS: Band 2 % (5-11); Lymphocytes 52 % (21-51); MDiff Complete? YES; Monocytes 11 % (0-10); Neutrophil 35 % (42-75); PLT Morphology Comment Appears Adequate
[2018-02-13 22:12] LABS: Acetaminophen Less than 6.0 mcg/mL (10.0-30.0); Alcohol Less than 10 mg/dL (Less than 10); Salicylate Less than 8.0 mg/dL (15.0-30.0)
[2018-02-14] MEDS ORDERED: diphenhydrAMINE 25 MG CAP ONE (03:29)
[2018-02-14] MEDS ORDERED: Ketorolac Tromethamine 30 MG/ML VIAL ONE (07:27)
[2018-02-14 11:29] LABS: Free T4 (Free Thyroxine) 1.06 ng/dL (0.70-1.48)
== END 2018-02-14 14:18 | disposition psychiatric hospital, planned readmission (93) ==
LOC: ERS 19:19 → EEVIPCON 19:19 → ERS 02-14 14:18
DX: F23 Brief psychotic disorder (principal); E11.9 Type 2 diabetes mellitus without complications; B19.20 Unspecified viral hepatitis C without hepatic coma; I10 Essential (primary) hypertension; F41.9 Anxiety disorder, unspecified; F32.9 Major depressive disorder, single episode, unspecified; F17.210 Nicotine dependence, cigarettes, uncomplicated
CPT/HCPCS: 36415; 80053; 80164; 80306; 80307; 81003; 82550; 84439; 84443; 84481; 85025; 96360; 96361; 96374; J1885

== ENCOUNTER 2018-03-08 11:13 | Emergency (ER) | payer OTHER ==
[2018-03-08 12:05] LABS: Hemoglobin 10.4 g/dL (14.0-18.0); Mean Corpuscular HGB CONC 33.7 g/dL (32.0-36.0); Mean Corpuscular Hemoglobin 33.4 pg (27.0-31.0); Mean Platelet Volume 7.8 fL (7.4-10.4); Platelet Count 256 thou/uL (130-400); RBC Distribution Width 11.9 % (11.5-14.5); Red Blood Cell (RBC) Count 3.13 mill/uL (4.70-6.10); White Blood Cell (WBC) Count 4.3 thou/uL (4.8-10.8)
[2018-03-08 12:22] LABS: ALT (SGPT) 15 U/L (8-55); AST (SGOT) 34 U/L (5-34); Acetaminophen Less than 6.0 mcg/mL (10.0-30.0); Albumin 3.9 g/dL (3.5-5.0); Alcohol Less than 10 mg/dL (Less than 10); Alkaline Phosphatase 52 U/L (40-150); Anion Gap 13 mmol/L (10-20); BUN (Urea Nitrogen) 14 mg/dL (8.4-25.7); Bilirubin, Total 0.5 mg/dL (0.2-1.2); CK (CPK) 380 U/L (30-200); Calc. Creatinine Clearance 0 mL/min (70-130); Calcium 10.2 mg/dL (7.8-10.44); Carbon Dioxide 23 mmol/L (22-29); Chloride 105 mmol/L (98-107); Estimated GFR-MDRD Greater than 90; Globulin 4.1 g/dL (2.4-3.5); Glucose 90 mg/dL (70-105); Potassium 4.2 mmol/L (3.5-5.1); Salicylate Less than 8.0 mg/dL (15.0-30.0); Sodium 137 mmol/L (136-145)
[2018-03-08 12:30] LABS: Band 1 % (5-11); Eosinophils 2 % (0-10); Hypochromia SLIGHT = 6-15 cells (100X) (0-5/hpf); Lymphocytes 16 % (21-51); MDiff Complete? YES; Macrocytosis MODERATE=16-30 cells (100X) (0-5/hpf); Microcytosis SLIGHT = 6-15 cells (100X) (0-5/hpf); Monocytes 22 % (0-10); Neutrophil 53 % (42-75); PLT Morphology Comment Appears Adequate; Polychromasia SLIGHT = 2-3 cells (100X) (0-2/hpf); Reactive Lymphocytes 6 % (0-10); Target Cells SLIGHT = 2-5 cells (100X) (0-1/hpf)
[2018-03-08 13:48] LABS: Bilirubin Negative (Negative); Blood, Urine Negative (Negative); Clarity CLEAR (Clear); Glucose, Urine (Dipstick) Negative (Negative); Leukocyte Negative (Negative); Nitrite Negative (Negative); Protein, Urine (Dipstick) Negative (Neg-Trace); Specific Gravity, Urine 1.016 (1.002-1.036)
[2018-03-08 13:57] LABS: Amphetamine Not Detected (NotDetected); Barbiturates Screen Not Detected (NotDetected); Benzodiazepine Screen Not Detected (NotDetected); Cocaine Metabolite Screen Not Detected (NotDetected); Medtox Control Line Valid? VALID (VALID); Medtox Reader # READER 4; Methadone Not Detected (NotDetected); Methamphetamine Not Detected (NotDetected); Opiate Screen Not Detected (NotDetected); Oxycodone Screen Not Detected (NotDetected); Phencyclidine (PCP) Not Detected (NotDetected); THC/Cannabinoid Screen Not Detected (NotDetected); Tricyclic Screen Not Detected (NotDetected)
== END 2018-03-08 21:37 ==
LOC: ERS 11:13
DX: R45.851 Suicidal ideations (principal); E11.9 Type 2 diabetes mellitus without complications; I10 Essential (primary) hypertension; F41.9 Anxiety disorder, unspecified; F32.9 Major depressive disorder, single episode, unspecified; F20.9 Schizophrenia, unspecified; F17.210 Nicotine dependence, cigarettes, uncomplicated; Z79.899 Other long term (current) drug therapy; Z79.82 Long term (current) use of aspirin
CPT/HCPCS: 36415; 80053; 80306; 80307; 81003; 82550; 84443; 85025; 93005

== ENCOUNTER 2018-04-12 03:17 | Observation (INO) | payer OTHER ==
[2018-04-12 04:47] LABS: Hemoglobin 11.2 g/dL (14.0-18.0); Mean Corpuscular HGB CONC 33.2 g/dL (32.0-36.0); Mean Corpuscular Hemoglobin 32.5 pg (27.0-31.0); Mean Corpuscular Volume 97.9 fL (78.0-98.0); Mean Platelet Volume 9.5 fL (7.4-10.4); Platelet Count 125 thou/uL (130-400); RBC Distribution Width 12.1 % (11.5-14.5); Red Blood Cell (RBC) Count 3.46 mill/uL (4.70-6.10); White Blood Cell (WBC) Count 4.6 thou/uL (4.8-10.8)
[2018-04-12 05:10] LABS: Band 2 % (5-11); Eosinophils 5 % (0-10); Lymphocytes 55 % (21-51); MDiff Complete? YES; Monocytes 11 % (0-10); Neutrophil 27 % (42-75); PLT Morphology Comment Appears Decreased
[2018-04-12] MEDS ORDERED: Multivitamins, Adult 10 ML, Thiamine HCl 100 MG, Folic Acid 1 MG in Dextrose 5 %-0.45 %... IV SCH (05:30)
[2018-04-12 05:37] LABS: Calcium 10.1 mg/dL (7.8-10.44); Chloride 99 mmol/L (98-107); Potassium 3.9 mmol/L (3.5-5.1); Sodium 134 mmol/L (136-145)
[2018-04-12 05:38] LABS: Globulin 3.8 g/dL (2.4-3.5); Glucose 87 mg/dL (70-105); Protein, Total 7.8 g/dL (6.0-8.3)
[2018-04-12 05:39] LABS: Carbon Dioxide 27 mmol/L (22-29)
[2018-04-12 05:40] LABS: Anion Gap 12 mmol/L (10-20); Bilirubin, Total 0.6 mg/dL (0.2-1.2)
[2018-04-12 05:41] LABS: Alkaline Phosphatase 48 U/L (40-150); Calc. Creatinine Clearance 0 mL/min (70-130); Estimated GFR-MDRD 77
[2018-04-12 05:42] LABS: BUN (Urea Nitrogen) 19 mg/dL (8.4-25.7)
[2018-04-12 05:43] LABS: AST (SGOT) 31 U/L (5-34)
[2018-04-12 05:44] LABS: ALT (SGPT) 16 U/L (8-55); Lipase 55 U/L (8-78)
[2018-04-12 05:45] LABS: Acetaminophen Less than 6.0 mcg/mL (10.0-30.0); Alcohol Less than 10 mg/dL (Less than 10); Salicylate Less than 8.0 mg/dL (15.0-30.0)
--- NOTE | 2018-04-12 07:53 | RAD ---
CHEST 1 VIEW: Date: 04/12/18 HISTORY: Chest pain. COMPARISON: Radiograph dated 02/10/18. FINDINGS: Lungs are clear. No pneumothorax or effusion. Cardiac silhouette and mediastinal contours within norm al limits. IMPRESSION: No acute intrathoracic abnormality. POS: [facility]
[2018-04-12 08:12] LABS: Troponin I Less than 0.010 ng/mL (< 0.028)
[2018-04-12] MEDS ORDERED: Nitroglycerin 2% Ointment 1 INCH/1 GM Packet ONE (08:31)
[2018-04-12] MEDS ORDERED: Lorazepam 1 MG TAB PO PRN (09:24)
[2018-04-12] MEDS ORDERED: Enoxaparin Sodium 40 MG/0.4 ML SYRINGE SC SCH ×2 (09:24→09:30)
[2018-04-12] MEDS ORDERED: Morphine 4 MG/ML VIAL SLOW IVP PRN (09:27)
[2018-04-12 11:05] LABS: Bilirubin Negative (Negative); Blood, Urine Negative (Negative); Clarity CLEAR (Clear); Glucose, Urine (Dipstick) Negative (Negative); Leukocyte Negative (Negative); Nitrite Negative (Negative); Protein, Urine (Dipstick) Negative (Neg-Trace); Specific Gravity, Urine 1.009 (1.002-1.036); pH, Urine 7.5 (5.0-9.0)
--- NOTE | 2018-04-12 11:12 | HP ---
CHIEF COMPLAINT: Chest pain. HISTORY OF PRESENT ILLNESS: The patient is a 57-year-old male, who is admitted to the hospital for further management of his chest pain. Apparently, he developed chest pain early this morning. He called EMS and was transferred to the Emergency Room in [facility] in [place]. He said that the pain was mainly in the left side of the chest, lasting just few minutes, coming and going. It was not associated with any nausea or vomiting, clammy skin, or shortness of breath. Apparently, he had stress test done in 2017, which was normal and he was seen by steward/stewardess chief cargo vessel at this time. His primary care physician is Dr. Liang at [facility] and surrogate decision maker is Thomas Thomas, client solutions director from [facility]. PAST MEDICAL HISTORY: 1. Questionable schizophrenia. 2. Diabetes mellitus type 2. 3. Hypertension. 4. Dyslipidemia. 5. Chronic hepatitis C. 6. Anxiety/depression. 7. History of polysubstance abuse. 8. Alcohol abuse. 9. History of incarceration. PAST SURGICAL HISTORY: None. CURRENT MEDICATIONS: Please refer to the medications list when it is available. ALLERGIES: NONE. FAMILY HISTORY: Positive for hypertension. SOCIAL HISTORY: The patient lives with his sister. Is unemployed. Smokes up to one pack of cigarettes per day. . He drinks alcohol daily. REVIEW OF SYSTEMS: Fourteen systems were reviewed and positive symptoms only those, which mentioned in HPI. PHYSICAL EXAMINATION: VITAL SIGNS: Blood pressure is 149/102, pulse is 57, respiratory rate is 16. He is afebrile. HEENT: Head is atraumatic and normocephalic. Eyes are PERRLA. Sclerae are nonicteric. Conjunctivae pinkish. Oral mucosa is moist. NECK: Supple. LUNGS: Clear. HEART: S1, S2, somewhat bradycardic. No S3. No S4. ABDOMEN: Soft, nontender, nondistended. EXTREMITIES: No clubbing, cyanosis, or edema. NEUROLOGICAL EXAMINATION: He follows my commands. He moves all four extremities. There is no any motor deficit. Cranial nerves are intact. LABORATORY DATA: Showed white count of 4.6, hemoglobin of 11.2, hematocrit 33.9, and platelet count 125,000, 55% of lymphocytes and 27 neutrophils. Sodium of 134. The rest of chemistry within normal limits. Toxicology shows salicylates less than 8.0, acetaminophen less than 6.0, and plasma alcohol less than 10. EKG showed normal sinus rhythm with bradycardia 59 beats per minute, some Q-waves in V1 and V2 with questionable MD in the past. A chest x-ray did not reveal any acute abnormalities. Two strips of EKG, which showed 2 runs, which looks like torsades de pointes, which happened around 4:18 and 4:19 this morning. The patient was asymptomatic. IMPRESSION: 1. Chest pain, rule out acute coronary syndrome. His first troponin is negative. He had two runs of cardiac arrhythmia, which appears to be torsades de pointes. 2. Diabetes mellitus type 2. 3. Hypothyroidism. 4. Dyslipidemia. 5. Chronic hepatitis C. 6. Alcohol abuse. 7. Anxiety/depression. 8. History of polysubstance abuse. 9. History of incarceration. PLAN: Admission to Telemetry for observation. IV Hep-Lock. Aspirin 81 mg once a day. Nitroglycerin paste half an inch every 8 hours. Echocardiogram. Cardiology consultation with Dr. Tyson, who is accreditation manager today. Morphine 2 mg every 4 hours as needed. Reconcile his home medications when the list is available, and DVT prophylaxis with 40 mg of Lovenox. Job ID: [id number]
[2018-04-12 11:15] LABS: Troponin I Less than 0.010 ng/mL (< 0.028)
[2018-04-12] MEDS ORDERED: Enoxaparin Sodium 40 MG/0.4 ML SYRINGE ONE (11:39)
[2018-04-12 12:32] VITALS: BMI 27.4
[2018-04-12] MEDS: Nitroglycerin 2% Ointment 1 INCH/1 GM Packet TOP SCH ×2 (14:12→21:22)
[2018-04-12] MEDS ORDERED: Multivitamins, Adult 10 ML, Folic Acid 1 MG, Thiamine HCl 100 MG in Dextrose 5 %-0.45 %... IV SCH (17:00)
[2018-04-12] MEDS ORDERED: OLANZapine 5 MG TAB PO SCH (21:00)
[2018-04-12] MEDS: Metoprolol Tartrate 50 MG TAB PO SCH (21:20)
--- NOTE | 2018-04-12 21:45 | CON ---
DATE OF CONSULTATION: 04/12/2018 PRIMARY CARE DOCTOR: Dr. Liang, who is psychiatrist. The patient's surrogate decision maker is Mr. Thomas Thomas, who is a care worker from [facility]. The patient's primary marker maker is going to be Dr. Marga Tyson. REASON FOR CARDIOLOGY CONSULT: Sustained HISTORY OF PRESENT ILLNESS: Mr. Amaral is a 57-year-old male with significant history of questionable schizophrenia, diabetes type 2, hypertension, dyslipidemia, chronic hepatitis C, history of polysubstance abuse, alcohol, EtOH abuse, and history of incarceration and he is in parole at this time, and hypothyroidism. Last night, he took Benadryl total 150 mg prior to the bedtime, but he could not sleep and this morning around 1:30, he started having intermittent heaviness like discomfort to the left chest and eventually does radiate to the right side while he was sitting at the kitchen and making coffee. The patient denied any other cardiac complaints such as shortness of breath, dizziness, lightheadedness, fluttering in his chest, or any other complaints except that the patient has had severe cough with yellow-greenish sputum for a couple of days prior to this event. The patient had a cardiac stress test done in 01/2017, which shows no evidence of ischemia with EF of 67%. At the emergency department when the patient was about to discharge, the patient's EKG shows possible torsade de pointes; however, the EKG appeared to be sinus rhythm with artifact. At this moment, the patient reports that the discomfort includes to the left chest with palpitation. The patient denies any other cardiac complaints at this moment. PAST MEDICAL HISTORY: Schizophrenia, diabetes type 2, hypertension, dyslipidemia, chronic hepatitis C, anxiety, depression, history of polysubstance abuse, EtOH abuse, hypothyroidism, history of incarceration. PAST SURGICAL HISTORY: None. FAMILY HISTORY: Positive for hypertension in his family, but negative for any other cardiac related family history. SOCIAL HISTORY: The patient lives with his sister at this moment. He is unemployed and his sister managing his medication. He continues smoking one-third to half a pack a day. He stopped drinking beer day before yesterday. He used to drink 40 ounce of beer at least a day. ALLERGIES: NO KNOWN DRUG ALLERGIES, BUT HE IS ALLERGIC TO FRIED MACKEREL. MEDICATIONS: 1. Aspirin 81 mg once a day. 2. Metoprolol 100 mg once a day. 3. Depakote 1000 mg twice a day. 4. Levothyroxine 150 mcg once a day. 5. Feaawrkglm04 mg at night. 6. Ferrous sulfate 325 mg once a day. 7. Hydrochlorothiazide 25 mg once a day. 8. Lisinopril 40 mg once a day. REVIEW OF SYSTEMS: Twelve-point review of systems was negative unless otherwise mentioned in HPI or below. The patient is complained of hard to void and incontinent at night. He has chronic back pain due to the previous trauma to his back. PHYSICAL EXAMINATION: VITAL SIGNS: Blood pressure 147/74, pulse is 65 and sinus rhythm, temperature 97.4, respiratory rate 16, and O2 saturation 98% on room air. GENERAL: The patient is alert and oriented x4, not in acute distress. HEENT: Head, normocephalic and atraumatic. Eyes, extraocular muscle movement intact. ENT and mouth, oral and nasal mucosa moist without lesion. He can swallow pill and food very well. NECK: Supple. Normal range of motion. No JVD. Carotid pulses are present without bruit or thrill. LUNGS: Clear to auscultate bilaterally. CARDIOVASCULAR: Regular rate and rhythm. Normal S1, S2. There is no S3, S4. No significant murmurs, heaves, or thrill noted. 2+ pulses in upper and lower extremities. No edema. ABDOMEN: Soft, nontender. No mass to palpitate. Bowel sounds are positive. SKIN: Warm and dry. No lesion, rash, or hematoma noticed. EXTREMITIES: The patient is able to move all extremities without difficulties. The patient denied claudication. NEUROLOGIC: The patient is alert and orient x4. Nonfocal. PSYCHIATRIC: The patient's mood is appropriate at this moment. LABORATORY DATA: WBC 4.6, hemoglobin 11.2, hematocrit 33.9, and platelet 125. Sodium 134, potassium 3.9, BUN 19, creatinine . AST 31, ALT 16. Troponin level is negative. Magnesium 2.0. UA is negative. Chest x-ray shows no acute intrathoracic abnormalities. A 12-lead EKG at the ER shows sinus rhythm with heart rate of 59 with no evidence of ST-segment change or T-wave inversion. ASSESSMENT AND PLAN: 1. Chest pain to rule out acute coronary syndrome. The patient's troponin level was negative and the patient's last stress test in 2017 showing negative. The patient's EKG has been sinus rhythm with artifact at this moment. However, due to the history of diabetes, hypertension, and current smoking and EtOH abuse, we would like order stress test for this patient. The patient had been on Lovenox. He has been on lisinopril, metoprolol, and aspirin 81 mg once a day. 2. Hypertension. We would like to resume the patient's home medication. 3. Diabetes type 2, which is managed by primary care doctor. 4. Chronic hepatitis C, which is managed by primary care doctor. 5. Smoking and EtOH abuse. Tobacco and EtOH cessation education given to the patient. 6. Mild anemia. The patient has been on ferrous sulfate 325 mg once a day. We would like to resume that medication. 7. Hypothyroidism. We would like to resume the patient's thyroid medication. Thank you very much for allowing the Cardiology Service to participate in the care of this patient. We will follow along with the patient's care team and make further recommendations as appropriate. Job ID: [id number]
--- NOTE | 2018-04-13 01:28 | CON ---
DATE OF CONSULTATION: 04/12/2018 INDICATION FOR CONSULTATION: A 57-year-old patient with a history of some chest discomfort, while he was in the emergency room was noted to have some abnormalities on the EKG. On closer evaluation, I believe this is artifact. It was felt this may have been torsades. However, it appears to be just artifact on the EKG. He has been having some sneezing, upper respiratory tract infections, and coughing recently. His chest discomfort, it is somewhat difficult for him to describe it, but I do not see any significant acute ST-segment changes or any other problems with his EKG at this time, nor does he have any abnormalities upon the cardiac enzymes. He did have a previous workup, I believe in the past is with stress testing in 2017, which was unremarkable. He denies having seen a field map technician in the past and he cannot remember any name of field map technician recently. I do not see any notes in this computer or in this admission or from this hospital on this patient from a field map technician. At this time, he is stable. He denies any chest pain. His EKG is unremarkable. His vital signs are stable. Past medical history, please refer to the notes dictated by the nurse practitioner as well as the surgical history, medications, allergies, family history, social history, and review of systems. PHYSICAL EXAMINATION: GENERAL: Reveals a well-developed, well-nourished gentleman, who is in no acute distress at this time. He is alert and oriented. VITAL SIGNS: Show blood pressure 147/74, which actually had increased up to 163/94, heart rate is in the 70s. It shows sinus rhythm. Respiratory rate is 21, O2 saturation 98% on room air, and he is afebrile. HEENT: Shows the head to be normocephalic and atraumatic. Carotid pulses are present. There were no bruits noted. CHEST: Clear to auscultation. CARDIOVASCULAR: Reveals a regular rate and rhythm. There were no significant murmurs, heaves, thrills, bruits, or rubs. ABDOMEN: Soft, flat, and nontender. Positive bowel sounds are present. EXTREMITIES: Showed no clubbing, cyanosis, or edema. Pedal pulses are present. NEUROLOGIC: The patient appears to be intact. SKIN: Warm and dry. There were no abnormalities actually noted on the physical examination. He does mentally appear to be somewhat slow at times, but he did answer my questions appropriately, but did find it very difficult to explain his chest discomfort. LABORATORY DATA: Shows troponin I to be 0.01, which is still within normal limits. Sodium was 134, creatinine 1.18. His glucose was 87. Urinalysis was unremarkable. His hemoglobin was 11.2, WBC of 4.6, platelet count was 125. IMPRESSION: 1. Chest pain, somewhat atypical after several weeks of coughing and sneezing. This may be musculoskeletal in nature. He did have a negative stress test in 2017. We could consider repeating a stress test to determine any evidence of ischemia. Also would suggest perhaps a repeat echocardiogram. I do not see that he has had one recently performed. He has been seen also in the past by Nephrology, most recently back in February of 2018. He was seen by the manufacturing assembler due to acute kidney injury and this had improved after he was given hydration. Chest pain, which would be evaluated further. 2. Possible torsades. This appears to be more artifact. I would discuss this with the assistant financial accountant. 3. History of hypertension. We will continue to monitor him and change his medications as needed. He has been on metoprolol as well as lisinopril in the past. 4. History of psychiatric disorder with schizophrenia. 5. History of diabetes. 6. Hyperlipidemia. 7. History of hepatitis C. These will be dealt by the primary care service. Job ID: [id number]
[2018-04-13] MEDS ORDERED: Levothyroxine 150 MCG TAB PO SCH (06:00)
[2018-04-13] MEDS ORDERED: Multivitamins, Adult 10 ML, Folic Acid 1 MG, Thiamine HCl 100 MG in Dextrose 5 %-0.45 %... IV SCH (06:00)
[2018-04-13] MEDS: Nitroglycerin 2% Ointment 1 INCH/1 GM Packet TOP SCH ×2 (06:41→15:59)
[2018-04-13 07:18] LABS: Anion Gap 12 mmol/L (10-20); BUN (Urea Nitrogen) 16 mg/dL (8.4-25.7); Calc. Creatinine Clearance 84 mL/min (70-130); Calcium 10.4 mg/dL (7.8-10.44); Carbon Dioxide 25 mmol/L (22-29); Chloride 103 mmol/L (98-107); Estimated GFR-MDRD 78; Glucose 102 mg/dL (70-105); Potassium 4.3 mmol/L (3.5-5.1); Sodium 136 mmol/L (136-145)
[2018-04-13 08:15] LABS: Band 1 % (5-11); Eosinophils 10 % (0-10); Hemoglobin 12.1 g/dL (14.0-18.0); Lymphocytes 60 % (21-51); MDiff Complete? YES; Mean Corpuscular HGB CONC 33.2 g/dL (32.0-36.0); Mean Corpuscular Hemoglobin 32.4 pg (27.0-31.0); Mean Corpuscular Volume 97.5 fL (78.0-98.0); Mean Platelet Volume 9.4 fL (7.4-10.4); Monocytes 7 % (0-10); Neutrophil 22 % (42-75); Platelet Count 131 thou/uL (130-400); RBC Distribution Width 11.7 % (11.5-14.5); Red Blood Cell (RBC) Count 3.72 mill/uL (4.70-6.10)
[2018-04-13] MEDS ORDERED: Enoxaparin Sodium 40 MG/0.4 ML SYRINGE SC SCH (09:00)
[2018-04-13] MEDS ORDERED: Lisinopril 20 MG TAB PO SCH (09:00)
[2018-04-13] MEDS ORDERED: Ferrous Sulfate 325 MG TAB PO SCH (09:00)
[2018-04-13] MEDS ORDERED: Hydrochlorothiazide 25 MG TAB PO SCH (09:00)
[2018-04-13] MEDS ORDERED: Aspirin 81 mg Enteric Coated Tablet PO SCH ×2 (09:00)
[2018-04-13] MEDS ORDERED: Regadenoson 0.4 MG/5 ML SYRINGE ONE (09:25)
--- NOTE | 2018-04-13 11:35 | PDOC.CTH ---
Cardiology Progress Note - Subjective The pt seen and examined. No overnight events. No cardiac complaints. He wants to go outside for smoking. - Objective Vital Signs Temp Pulse Resp BP Pulse Ox 04/13/18 08:00 97.5 F L 58 L 16 173/79 H 99 04/13/18 04:14 97.4 F L 71 17 139/83 96 04/12/18 23:43 98.2 F 67 18 144/85 H 99 Weight 190 lb 12.8 oz 04/12/18 04/13/18 04/14/18 06:59 06:59 06:59 Intake Total 1560 Balance 1560 - Physical Examination General/Neuro: alert & oriented x3 Neck: no JVD present Lungs: CTA Heart: RRR Abdomen: soft Extremities: other: (No edema) - Telemetry Telemetry Rhythm: SR - Labs Result Diagrams: 04/13/18 06:30 04/13/18 06:30 Troponin/CKMB Troponin I Less than 0.010 ng/mL (< 0.028) 04/12/18 10:43 - Assessment/Plan 1. CP - waiting for Stress test result at this moment. Echo is normal. 2. HTN- stable 3. DM type 2 - managed by pcp 4. Current smoker - smoking cessation education given to the pt 5. chronic hep C MAR reviewed * When the pt's stress test shows normal, the pt is ok to d/c home. Pt. seen and eval. earlier today. I agree with the A/P by the FOOT ORTHOPEDIST.Chest clear. RRR. Stress test is negative for ischemia. Pt. can be d/c'd to home. F/U with medical service. Review of Systems - Review of Systems Constitutional: reports: no symptoms reported EENTM: reports: no symptoms reported Respiratory: reports: no symptoms reported Cardiac (ROS): reports: no symptoms reported ABD/GI: reports: no symptoms reported : reports: no symptoms reported Skin: reports: no symptoms reported
[2018-04-13 15:52] VITALS: BP 152/73; TEMP 98.3
[2018-04-13] MEDS: Metoprolol Tartrate 50 MG TAB PO SCH (15:59)
--- NOTE | 2018-04-13 16:10 | NM ---
NUCLEAR MEDICINE CARDIAC STRESS TEST WITH EJECTION FRACTION: HISTORY: Chest pain. Tobacco and alcohol abuse. Hyp__tension. COMPARISON: Study from 2017. TECHNIQUE: Stress and rest were performed after the intravenous administration of 28 and 10 millicuries of techn etium 99m sestamibi, respectively. FINDINGS: There is adequate left ventricular uptake of radiotracer. Normal wall motion. The calculated ejecti on fraction is 67%. No scar o ischemia. IMPRESSION: Normal examination. POS: [facility]
--- NOTE | 2018-04-14 04:40 | DIS ---
DATE OF ADMISSION: 04/12/2018 DATE OF DISCHARGE: 04/13/2018 NET DEVELOPMENT MANAGER: Dr. Tyson, Cardiology Service. FINAL DIAGNOSES: 1. Chest pain, acute coronary syndrome was ruled out. 2. Hypertension, stable. 3. Diabetes mellitus type 2. 4. Chronic hepatitis C. 5. Current smoker. HOSPITAL COURSE: The patient is a 57-year-old male, who was admitted to hospital with chest pain. It was not associated with any nausea, vomiting, clammy skin, or shortness of breath. While in the emergency room, his white count was 4.6, hemoglobin 11.2, hematocrit 33.9, platelet count 125,000, sodium was 134, alcohol level was less than 10. EKG showed normal sinus rhythm with bradycardia at 59 beats per minute and some Q-wave changes in V1 and V2. Questionable HI in the past. The chest x-ray did not reveal any acute abnormalities. Two strips of EKG showed questionable either the runs of torsades de pointes or just artifacts. The patient was asymptomatic when this happened. This happened when he was in the emergency room waiting for his bed. The patient was admitted to the hospital. Cardiology was consulted. He underwent echocardiogram, which showed normal LVEF of 65%. No any significant changes on the echo. Also, he underwent stress test which was nuclear with normal examination. His ejection fraction was estimated at 67%. There was no scar or ischemia. Clinically, he is doing well. He does not have much pain or any other complaints to offer. His blood pressure is 152/73, pulse is 66, temperature is 98.3, respirations 16, O2 saturation is 99% on room air. He was examined and evaluated before he was discharged. DISPOSITION: Home. ACTIVITY: As tolerated. DIET: Heart healthy. FOLLOWUP: He is going to follow up with primary care physician at [facility] in 1 week. TIME SPENT: The discharge time spent on this patient's discharge is less than 30 minutes. Job ID: [id number]
== END 2018-04-13 17:53 | disposition home or self-care (01) ==
LOC: ERS 03:17 → ERHOLD 06:19 → 2SW 12:41
PROVIDERS: ADMIT Internal Medicine; ATTEND Internal Medicine
DX: R07.9 Chest pain, unspecified (principal); I10 Essential (primary) hypertension; B18.2 Chronic viral hepatitis C; E78.5 Hyperlipidemia, unspecified; E11.9 Type 2 diabetes mellitus without complications; F41.9 Anxiety disorder, unspecified; F32.9 Major depressive disorder, single episode, unspecified; F10.10 Alcohol abuse, uncomplicated; F17.210 Nicotine dependence, cigarettes, uncomplicated; F20.9 Schizophrenia, unspecified; D64.9 Anemia, unspecified; Z91.013 Allergy to seafood; Z79.82 Long term (current) use of aspirin; Z79.899 Other long term (current) drug therapy
CPT/HCPCS: 36415; 71045; 78452; 80048; 80053; 80307; 81003; 83690; 83735; 84484; 85025; 93005; 93017; 93306; 96365; 96366; 96372; A9500; G0378; J1650; J2785; J3411; J7042

== ENCOUNTER 2018-04-13 22:33 | Emergency (ER) | payer OTHER ==
[2018-04-13 23:22] LABS: Acetaminophen Less than 6.0 mcg/mL (10.0-30.0); Alcohol 72 mg/dL (Less than 10); Salicylate Less than 8.0 mg/dL (15.0-30.0)
[2018-04-13 23:24] LABS: ALT (SGPT) 19 U/L (8-55); AST (SGOT) 43 U/L (5-34); Albumin 3.8 g/dL (3.5-5.0); Alkaline Phosphatase 50 U/L (40-150); Anion Gap 17 mmol/L (10-20); BUN (Urea Nitrogen) 14 mg/dL (8.4-25.7); Bilirubin, Total 0.3 mg/dL (0.2-1.2); CK (CPK) 836 U/L (30-200); Calc. Creatinine Clearance 0 mL/min (70-130); Calcium 10.1 mg/dL (7.8-10.44); Carbon Dioxide 20 mmol/L (22-29); Chloride 101 mmol/L (98-107); Estimated GFR-MDRD 86; Globulin 3.9 g/dL (2.4-3.5); Glucose 140 mg/dL (70-105); Potassium 3.6 mmol/L (3.5-5.1); Protein, Total 7.7 g/dL (6.0-8.3); Sodium 134 mmol/L (136-145)
[2018-04-13 23:27] LABS: Band 5 % (5-11); Eosinophils 2 % (0-10); Hemoglobin 11.5 g/dL (14.0-18.0); Lymphocytes 53 % (21-51); MDiff Complete? YES; Mean Corpuscular HGB CONC 35.1 g/dL (32.0-36.0); Mean Corpuscular Hemoglobin 34.5 pg (27.0-31.0); Mean Corpuscular Volume 98.1 fL (78.0-98.0); Mean Platelet Volume 9.7 fL (7.4-10.4); Monocytes 7 % (0-10); Neutrophil 33 % (42-75); PLT Morphology Comment Appears Adequate; Platelet Count 119 thou/uL (130-400); RBC Distribution Width 11.7 % (11.5-14.5); Red Blood Cell (RBC) Count 3.33 mill/uL (4.70-6.10); White Blood Cell (WBC) Count 4.3 thou/uL (4.8-10.8)
[2018-04-14 00:25] LABS: Bilirubin Negative (Negative); Blood, Urine Negative (Negative); Clarity CLEAR (Clear); Glucose, Urine (Dipstick) Negative (Negative); Leukocyte Negative (Negative); Nitrite Negative (Negative); Protein, Urine (Dipstick) Negative (Neg-Trace); Specific Gravity, Urine 1.003 (1.002-1.036); pH, Urine 6.5 (5.0-9.0)
[2018-04-14 00:41] LABS: Amphetamine Not Detected (NotDetected); Barbiturates Screen Not Detected (NotDetected); Benzodiazepine Screen Not Detected (NotDetected); Cocaine Metabolite Screen Not Detected (NotDetected); Medtox Control Line Valid? VALID (VALID); Medtox Reader # READER 4; Methadone Not Detected (NotDetected); Methamphetamine Not Detected (NotDetected); Opiate Screen Not Detected (NotDetected); Oxycodone Screen Not Detected (NotDetected); Phencyclidine (PCP) Not Detected (NotDetected); THC/Cannabinoid Screen Not Detected (NotDetected); Tricyclic Screen Not Detected (NotDetected)
== END 2018-04-14 20:19 ==
LOC: ERS 22:33
DX: F30.9 Manic episode, unspecified (principal); E11.9 Type 2 diabetes mellitus without complications; I10 Essential (primary) hypertension; F41.9 Anxiety disorder, unspecified; F20.9 Schizophrenia, unspecified; F17.200 Nicotine dependence, unspecified, uncomplicated
CPT/HCPCS: 36415; 80306; 80307; 81003; 82550; 84443; 93005

== ENCOUNTER 2018-04-25 20:50 | Emergency (ER) | payer OTHER ==
[2018-04-25 21:28] LABS: #Basophils 0.1 thou/uL (0.0-0.2); #Eosinphils 0.1 thou/uL (0.0-0.7); #Lymphocytes 2.2 thou/uL (1.20-3.40); #Monocytes 0.7 thou/uL (0.11-0.59); #Neutrophils 2.2 thou/uL (1.40-6.50); %Basophils 2.4 % (0.0-1.0); %Eosinophils 2.8 % (0.0-10.0); %Lymphocytes 41.7 % (21.0-51.0); %Monocytes 12.3 % (0.0-10.0); %Neutrophils 40.8 % (42.0-75.0); Hemoglobin 11.6 g/dL (14.0-18.0); Mean Corpuscular Hemoglobin 32.5 pg (27.0-31.0); Mean Corpuscular Volume 98.3 fL (78.0-98.0); Mean Platelet Volume 8.6 fL (7.4-10.4); Platelet Count 218 thou/uL (130-400); RBC Distribution Width 11.8 % (11.5-14.5); Red Blood Cell (RBC) Count 3.57 mill/uL (4.70-6.10); White Blood Cell (WBC) Count 5.4 thou/uL (4.8-10.8)
[2018-04-25 21:49] LABS: ALT (SGPT) 19 U/L (8-55); AST (SGOT) 39 U/L (5-34); Acetaminophen Less than 6.0 mcg/mL (10.0-30.0); Albumin 4.1 g/dL (3.5-5.0); Alcohol 91 mg/dL (Less than 10); Alkaline Phosphatase 50 U/L (40-150); Anion Gap 16 mmol/L (10-20); BUN (Urea Nitrogen) 17 mg/dL (8.4-25.7); Bilirubin, Total 0.4 mg/dL (0.2-1.2); Calc. Creatinine Clearance 0 mL/min (70-130); Calcium 10.1 mg/dL (7.8-10.44); Carbon Dioxide 21 mmol/L (22-29); Chloride 103 mmol/L (98-107); Estimated GFR-MDRD 71; Globulin 3.7 g/dL (2.4-3.5); Glucose 126 mg/dL (70-105); Potassium 3.4 mmol/L (3.5-5.1); Protein, Total 7.8 g/dL (6.0-8.3); Salicylate Less than 8.0 mg/dL (15.0-30.0); Sodium 137 mmol/L (136-145)
--- NOTE | 2018-04-25 22:00 | RAD ---
PORTABLE AP CHEST X-RAY 04/25/18 HISTORY: Chest pain. COMPARISON: 04/12/18. FINDINGS: The cardiac silhouette and pulmonary vasculature are within normal limits. There are linear densities at the left lung base which may be related to atelectasis. The lungs are otherwise clear. There has been no other interval change from the prior exam. IMPRESSION: No acute cardiopulmonary process. Linear densities are seen at the left lung base probably attributab le to mild atelectasis and vascular structures. POS: [facility]
[2018-04-26 00:07] LABS: Bilirubin Negative (Negative); Blood, Urine Negative (Negative); Clarity CLEAR (Clear); Glucose, Urine (Dipstick) Negative (Negative); Leukocyte Negative (Negative); Nitrite Negative (Negative); Protein, Urine (Dipstick) Negative (Neg-Trace); Specific Gravity, Urine 1.006 (1.002-1.036)
[2018-04-26 00:18] LABS: Amphetamine Not Detected (NotDetected); Barbiturates Screen Not Detected (NotDetected); Benzodiazepine Screen Not Detected (NotDetected); Cocaine Metabolite Screen Not Detected (NotDetected); Medtox Control Line Valid? VALID (VALID); Medtox Reader # READER 4; Methadone Not Detected (NotDetected); Methamphetamine Not Detected (NotDetected); Opiate Screen Not Detected (NotDetected); Oxycodone Screen Not Detected (NotDetected); Phencyclidine (PCP) Not Detected (NotDetected); THC/Cannabinoid Screen Not Detected (NotDetected); Tricyclic Screen Not Detected (NotDetected)
[2018-04-26] MEDS ORDERED: traZODone HCl 150 MG TAB PO SCH (01:45)
[2018-04-26] MEDS ORDERED: OLANZapine 5 MG TAB PO SCH (01:45)
== END 2018-04-26 08:02 ==
LOC: ERS 20:50
DX: R45.851 Suicidal ideations (principal); E11.9 Type 2 diabetes mellitus without complications; I10 Essential (primary) hypertension; F20.9 Schizophrenia, unspecified; F17.200 Nicotine dependence, unspecified, uncomplicated; Z79.899 Other long term (current) drug therapy
CPT/HCPCS: 36415; 51701; 71045; 80053; 80306; 80307; 81003; 84443; 84484; 85025; 93005

== ENCOUNTER 2018-05-10 04:51 | Emergency (ER) | payer OTHER ==
[2018-05-10 05:23] LABS: Bilirubin Negative (Negative); Blood, Urine Negative (Negative); Clarity CLEAR (Clear); Glucose, Urine (Dipstick) Negative (Negative); Leukocyte Negative (Negative); Nitrite Negative (Negative); Protein, Urine (Dipstick) Negative (Neg-Trace); Specific Gravity, Urine 1.011 (1.002-1.036); pH, Urine 5.5 (5.0-9.0)
[2018-05-10 05:25] LABS: #Basophils 0.1 thou/uL (0.0-0.2); #Eosinphils 0.2 thou/uL (0.0-0.7); #Lymphocytes 2.3 thou/uL (1.20-3.40); #Monocytes 0.8 thou/uL (0.11-0.59); #Neutrophils 1.8 thou/uL (1.40-6.50); %Basophils 1.3 % (0.0-1.0); %Eosinophils 3.4 % (0.0-10.0); %Monocytes 14.7 % (0.0-10.0); %Neutrophils 35.5 % (42.0-75.0); Hemoglobin 10.9 g/dL (14.0-18.0); Mean Corpuscular HGB CONC 33.7 g/dL (32.0-36.0); Mean Corpuscular Hemoglobin 32.3 pg (27.0-31.0); Mean Platelet Volume 8.1 fL (7.4-10.4); Platelet Count 195 thou/uL (130-400); RBC Distribution Width 11.7 % (11.5-14.5); Red Blood Cell (RBC) Count 3.36 mill/uL (4.70-6.10); White Blood Cell (WBC) Count 5.1 thou/uL (4.8-10.8)
[2018-05-10 05:30] LABS: Amphetamine Not Detected (NotDetected); Barbiturates Screen Not Detected (NotDetected); Benzodiazepine Screen Not Detected (NotDetected); Cocaine Metabolite Screen Not Detected (NotDetected); Medtox Control Line Valid? VALID (VALID); Medtox Reader # READER 4; Methadone Not Detected (NotDetected); Methamphetamine Not Detected (NotDetected); Opiate Screen Not Detected (NotDetected); Oxycodone Screen Not Detected (NotDetected); Phencyclidine (PCP) Not Detected (NotDetected); THC/Cannabinoid Screen Not Detected (NotDetected); Tricyclic Screen Not Detected (NotDetected)
[2018-05-10 05:47] LABS: ALT (SGPT) 22 U/L (8-55); AST (SGOT) 52 U/L (5-34); Acetaminophen Less than 6.0 mcg/mL (10.0-30.0); Albumin 4.2 g/dL (3.5-5.0); Alcohol Less than 10 mg/dL (Less than 10); Alkaline Phosphatase 48 U/L (40-150); Anion Gap 14 mmol/L (10-20); BUN (Urea Nitrogen) 28 mg/dL (8.4-25.7); Bilirubin, Total 0.6 mg/dL (0.2-1.2); Calc. Creatinine Clearance 0 mL/min (70-130); Calcium 10.2 mg/dL (7.8-10.44); Carbon Dioxide 23 mmol/L (22-29); Chloride 98 mmol/L (98-107); Estimated GFR-MDRD 70; Globulin 3.9 g/dL (2.4-3.5); Glucose 101 mg/dL (70-105); Potassium 4.2 mmol/L (3.5-5.1); Protein, Total 8.1 g/dL (6.0-8.3); Salicylate Less than 8.0 mg/dL (15.0-30.0); Sodium 131 mmol/L (136-145)
[2018-05-10] MEDS ORDERED: Lisinopril 10 MG TAB ONE (10:49)
[2018-05-10] MEDS ORDERED: Hydrochlorothiazide 25 MG TAB PO SCH (11:00)
[2018-05-10] MEDS ORDERED: Metoprolol Tartrate 50 MG TAB PO SCH (11:00)
[2018-05-10] MEDS ORDERED: Acyclovir 400 mg Tablet PO SCH ×2 (11:00→21:00)
[2018-05-10] MEDS ORDERED: Lisinopril 20 MG TAB PO SCH (11:00)
[2018-05-10] MEDS ORDERED: traZODone HCl 150 MG TAB PO SCH (21:00)
[2018-05-11] MEDS ORDERED: Levothyroxine 150 MCG TAB PO SCH (06:00)
[2018-05-11] MEDS ORDERED: Lisinopril 20 MG TAB PO SCH (09:00)
[2018-05-11] MEDS ORDERED: Metoprolol Tartrate 50 MG TAB PO SCH (09:00)
[2018-05-11] MEDS ORDERED: Hydrochlorothiazide 25 MG TAB PO SCH (09:00)
--- NOTE | 2018-05-17 15:25 | EKG ---
Test Reason : SI Blood Pressure : / mmHG Vent. Rate : 080 BPM Atrial Rate : 080 BPM P-R Int : 198 ms QRS Dur : 092 ms QT Int : 358 ms P-R-T Axes : 048 004 015 degrees QTc Int : 412 ms Normal sinus rhythm Septal infarct , age undetermined Abnormal ECG Confirmed by ELIN ECHEVARRIA D.O. ([id number]), editorial intern [facility] WELLS ([id number]) on 05/17/2018 3:24:37 PM Referred By: Confirmed By:ELIN ECHEVARRIA D.O.
== END 2018-05-10 12:10 ==
LOC: ERS 04:51
DX: R45.851 Suicidal ideations (principal); R45.850 Homicidal ideations; E11.9 Type 2 diabetes mellitus without complications; I10 Essential (primary) hypertension; F20.9 Schizophrenia, unspecified; F17.200 Nicotine dependence, unspecified, uncomplicated; Z79.899 Other long term (current) drug therapy
CPT/HCPCS: 36415; 80053; 80164; 80306; 80307; 81003; 84443; 85025; 93005

== ENCOUNTER 2018-05-13 22:12 | Emergency (ER) | payer OTHER ==
--- NOTE | 2018-05-13 22:42 | RAD ---
PORTABLE CHEST ONE VIEW: 05/13/18 at 10:33 p.m. HISTORY: Chest pain. FINDINGS: Comparison is made to exam of 04/25/18. The heart size is normal. No focal areas of consolidation, pneumothoraces, or pleural effusions are s een. IMPRESSION: No acute process. POS: [facility]
[2018-05-13 22:45] LABS: #Basophils 0.1 thou/uL (0.0-0.2); #Eosinphils 0.2 thou/uL (0.0-0.7); #Lymphocytes 2.4 thou/uL (1.20-3.40); #Monocytes 0.7 thou/uL (0.11-0.59); #Neutrophils 1.5 thou/uL (1.40-6.50); %Basophils 1.5 % (0.0-1.0); %Eosinophils 4.2 % (0.0-10.0); %Lymphocytes 49.1 % (21.0-51.0); %Monocytes 13.6 % (0.0-10.0); %Neutrophils 31.6 % (42.0-75.0); Hemoglobin 10.7 g/dL (14.0-18.0); Mean Corpuscular Hemoglobin 32.6 pg (27.0-31.0); Mean Corpuscular Volume 98.6 fL (78.0-98.0); Mean Platelet Volume 8.4 fL (7.4-10.4); Platelet Count 194 thou/uL (130-400); RBC Distribution Width 11.7 % (11.5-14.5); Red Blood Cell (RBC) Count 3.29 mill/uL (4.70-6.10); White Blood Cell (WBC) Count 4.8 thou/uL (4.8-10.8)
[2018-05-13 23:07] LABS: ALT (SGPT) 19 U/L (8-55); AST (SGOT) 36 U/L (5-34); Alkaline Phosphatase 46 U/L (40-150); Anion Gap 14 mmol/L (10-20); BUN (Urea Nitrogen) 17 mg/dL (8.4-25.7); Bilirubin, Total 0.2 mg/dL (0.2-1.2); CK (CPK) 602 U/L (30-200); Calc. Creatinine Clearance 0 mL/min (70-130); Calcium 10.1 mg/dL (7.8-10.44); Carbon Dioxide 22 mmol/L (22-29); Cardiac Risk 4.5 (Less than 4.5); Chloride 100 mmol/L (98-107); Cholesterol 113 mg/dl (< 200 Desired); Estimated GFR-MDRD 82; Globulin 3.7 g/dL (2.4-3.5); Glucose 100 mg/dL (70-105); HDL Cholesterol 25 mg/dL (>60 Neg Risk); LDL Cholesterol, Calculated 50 mg/dL; Lipase 166 U/L (8-78); Protein, Total 7.7 g/dL (6.0-8.3); Sodium 132 mmol/L (136-145); Triglycerides 189 mg/dL (Less than 150)
--- NOTE | 2018-05-17 19:51 | EKG ---
Test Reason : Blood Pressure : / mmHG Vent. Rate : 069 BPM Atrial Rate : 069 BPM P-R Int : 206 ms QRS Dur : 084 ms QT Int : 368 ms P-R-T Axes : 034 007 011 degrees QTc Int : 394 ms Normal sinus rhythm Septal infarct , age undetermined Abnormal ECG Confirmed by MARIA ANTONIA SINGLETON DO ([id number]), continuity editor [facility]CO WELLS ([id number]) on 05/17/2018 7:50:58 PM Referred By: Confirmed By:MARIA ANTONIA SINGLETON DO
== END 2018-05-14 01:22 | disposition home or self-care (01) ==
LOC: ERS 22:12
DX: R07.89 Other chest pain (principal); E11.9 Type 2 diabetes mellitus without complications; I10 Essential (primary) hypertension; F20.9 Schizophrenia, unspecified; Z79.899 Other long term (current) drug therapy
CPT/HCPCS: 36415; 71045; 80053; 80061; 82550; 83690; 83880; 84484; 85025; 93005; 94760

== ENCOUNTER 2018-05-18 23:52 | Emergency (ER) | payer OTHER | END 2018-05-19 00:53 | disposition home or self-care (01) | LOC: ERS 23:52 | DX: R53.83 Other fatigue (principal); R09.81 Nasal congestion; E03.9 Hypothyroidism, unspecified; I20.9 Angina pectoris, unspecified; I10 Essential (primary) hypertension; F20.9 Schizophrenia, unspecified; F17.210 Nicotine dependence, cigarettes, uncomplicated; Z71.6 Tobacco abuse counseling; Z79.899 Other long term (current) drug therapy | CPT/HCPCS: 87804; 99281 ==

== ENCOUNTER 2018-05-30 18:11 | Emergency (ER) | payer OTHER ==
[2018-05-30 19:24] LABS: ALT (SGPT) 27 U/L (8-55); AST (SGOT) 57 U/L (5-34); Albumin 4.3 g/dL (3.5-5.0); Alkaline Phosphatase 44 U/L (40-150); Anion Gap 14 mmol/L (10-20); BUN (Urea Nitrogen) 27 mg/dL (8.4-25.7); Bilirubin, Total 0.5 mg/dL (0.2-1.2); Calc. Creatinine Clearance 0 mL/min (70-130); Calcium 10.4 mg/dL (7.8-10.44); Carbon Dioxide 25 mmol/L (22-29); Chloride 101 mmol/L (98-107); Estimated GFR-MDRD 63; Globulin 3.6 g/dL (2.4-3.5); Glucose 86 mg/dL (70-105); Potassium 4.5 mmol/L (3.5-5.1); Protein, Total 7.9 g/dL (6.0-8.3); Sodium 135 mmol/L (136-145)
[2018-05-30 21:58] LABS: Amphetamine Not Detected (NotDetected); Barbiturates Screen Not Detected (NotDetected); Benzodiazepine Screen Not Detected (NotDetected); Cocaine Metabolite Screen Not Detected (NotDetected); Medtox Control Line Valid? VALID (VALID); Medtox Reader # READER 1; Methadone Not Detected (NotDetected); Methamphetamine Not Detected (NotDetected); Opiate Screen Not Detected (NotDetected); Oxycodone Screen Not Detected (NotDetected); Phencyclidine (PCP) Not Detected (NotDetected); THC/Cannabinoid Screen Not Detected (NotDetected); Tricyclic Screen Not Detected (NotDetected)
[2018-05-31] MEDS ORDERED: Lisinopril 10 MG TAB ONE (03:50)
[2018-05-31 04:15] LABS: #Eosinphils 0.1 thou/uL (0.0-0.7); #Lymphocytes 1.6 thou/uL (1.20-3.40); #Monocytes 0.6 thou/uL (0.11-0.59); #Neutrophils 1.8 thou/uL (1.40-6.50); %Eosinophils 2.2 % (0.0-10.0); %Lymphocytes 38.1 % (21.0-51.0); %Monocytes 13.9 % (0.0-10.0); %Neutrophils 44.8 % (42.0-75.0); Hemoglobin 10.9 g/dL (14.0-18.0); Mean Corpuscular Volume 99.8 fL (78.0-98.0); Mean Platelet Volume 9.5 fL (7.4-10.4); Platelet Count 199 thou/uL (130-400); RBC Distribution Width 12.2 % (11.5-14.5); Red Blood Cell (RBC) Count 3.41 mill/uL (4.70-6.10); White Blood Cell (WBC) Count 4.1 thou/uL (4.8-10.8)
[2018-05-31 04:24] LABS: Acetaminophen Less than 6.0 mcg/mL (10.0-30.0); Alcohol Less than 10 mg/dL (Less than 10); Salicylate Less than 8.0 mg/dL (15.0-30.0)
[2018-05-31] MEDS ORDERED: Hydrochlorothiazide 25 MG TAB PO SCH (09:30)
[2018-05-31] MEDS ORDERED: Levothyroxine 150 MCG TAB PO SCH (09:30)
[2018-05-31] MEDS ORDERED: Acyclovir 400 mg Tablet PO SCH (09:30)
== END 2018-05-31 16:01 ==
LOC: ERS 18:11
DX: T42.6X1A Poisoning by other antiepileptic and sedative-hypnotic drugs, accidental (unintentional), initial encounter (principal); R45.851 Suicidal ideations; R45.850 Homicidal ideations; E03.9 Hypothyroidism, unspecified; E11.9 Type 2 diabetes mellitus without complications; I10 Essential (primary) hypertension; F20.9 Schizophrenia, unspecified; F17.210 Nicotine dependence, cigarettes, uncomplicated; Z79.899 Other long term (current) drug therapy
CPT/HCPCS: 36415; 36416; 80053; 80164; 80306; 80307; 85025; 93005; 96360; 96361

== ENCOUNTER 2018-06-12 16:29 | Inpatient (IN) | payer OTHER ==
[2018-06-12 18:18] LABS: Hemoglobin 10.5 g/dL (14.0-18.0); Mean Corpuscular HGB CONC 33.6 g/dL (32.0-36.0); Mean Corpuscular Hemoglobin 31.3 pg (27.0-31.0); Mean Corpuscular Volume 93.1 fL (78.0-98.0); Mean Platelet Volume 7.8 fL (7.4-10.4); Platelet Count 217 thou/uL (130-400); RBC Distribution Width 11.7 % (11.5-14.5); Red Blood Cell (RBC) Count 3.35 mill/uL (4.70-6.10); White Blood Cell (WBC) Count 16.9 thou/uL (4.8-10.8)
[2018-06-12 18:33] LABS: Acetaminophen Less than 6.0 mcg/mL (10.0-30.0); Alcohol Less than 10 mg/dL (Less than 10); Salicylate Less than 8.0 mg/dL (15.0-30.0)
[2018-06-12 18:35] LABS: ALT (SGPT) 30 U/L (8-55); AST (SGOT) 133 U/L (5-34); Alcohol Less than 10 mg/dL (Less than 10); Alkaline Phosphatase 50 U/L (40-150); Anion Gap 19 mmol/L (10-20); BUN (Urea Nitrogen) 54 mg/dL (8.4-25.7); Band 39 % (5-11); Calc. Creatinine Clearance 0 mL/min (70-130); Calcium 10.3 mg/dL (7.8-10.44); Carbon Dioxide 20 mmol/L (22-29); Chloride 92 mmol/L (98-107); Dohle Bodies SLIGHT; Estimated GFR-MDRD 45; Globulin 4.1 g/dL (2.4-3.5); Glucose 85 mg/dL (70-105); Lymphocytes 12 % (21-51); MDiff Complete? YES; Metamyelocyte 1 % (0-0); Monocytes 6 % (0-10); Neutrophil 42 % (42-75); Ovalocytes SLIGHT = 2-5 cells (100X) (0-1/hpf); Platelet Morphology Comment Appears Adequate; Polychromasia SLIGHT = 2-3 cells (100X) (0-2/hpf); Potassium 3.8 mmol/L (3.5-5.1); Protein, Total 8.1 g/dL (6.0-8.3); Sodium 127 mmol/L (136-145)
[2018-06-12 18:50] LABS: CK (CPK) 6058 U/L (30-200)
--- NOTE | 2018-06-12 19:37 | RAD ---
CHEST ONE VIEW: 06/12/18 COMPARISON: 05/13/18. HISTORY: Altered mental status. FINDINGS: Normal cardiac silhouette. Pulmonary vessels and hilum are normal. Costophrenic angles are clear. The re are patchy interstitial opacities in both lung bases. There is more focal opacification in the lef t lung base due to atelectasis, pneumonia or aspiration. No pneumothorax. IMPRESSION: Bibasilar opacities, left greater than right. Continued surveillance is recommended. POS: [facility]
--- NOTE | 2018-06-12 19:48 | CT ---
HEAD CT WITHOUT CONTRAST: 06/12/18 COMPARISON: 02/05/18. HISTORY: Altered mental status. Intentional overdose. FINDINGS: Limited evaluation. No parenchymal hemorrhage. No extra-axial hematoma. No midline shift. Basilar cisterns are patent. Br ain volume, age appropriate. Cortical medley-white matter differentiation is preserved. Ventricles and sulci are patent and symmetric. Calvarium is intact. Mild mucosal thickening of the sinuses. Adequate mastoid air cell aeration. IMPRESSION: No acute intracranial process. POS: [facility]
[2018-06-12 20:08] LABS: INR-International Normal Ratio 1.2; PTT 29.2 SEC (22.9-36.1)
[2018-06-12] MEDS ORDERED: Cefepime 2 GM VIAL ONE (20:26)
[2018-06-13] MEDS ORDERED: Lactated Ringer's 1,000 ML IV SCH (01:45)
[2018-06-13 01:58] VITALS: BMI 27.2
[2018-06-13 02:29] LABS: Anion Gap 15 mmol/L (10-20); BUN (Urea Nitrogen) 42 mg/dL (8.4-25.7); Calc. Creatinine Clearance 65 mL/min (70-130); Calcium 9.3 mg/dL (7.8-10.44); Carbon Dioxide 20 mmol/L (22-29); Chloride 98 mmol/L (98-107); Estimated GFR-MDRD 61; Glucose 92 mg/dL (70-105); Potassium 3.4 mmol/L (3.5-5.1); Sodium 130 mmol/L (136-145)
[2018-06-13] MEDS ORDERED: Acetaminophen 500 MG TAB PO PRN (03:10)
[2018-06-13] MEDS ORDERED: hydrALAZINE 20 MG/ML VIAL SLOW IVP PRN (03:10)
[2018-06-13] MEDS ORDERED: Ondansetron PF 4 MG/2 ML Vial IVP PRN (03:10)
[2018-06-13] MEDS ORDERED: Ondansetron ODT 4 MG TAB PO PRN (03:10)
[2018-06-13 03:49] LABS: Valproic Acid (Depakene) 143.3 ug/mL (50.0-100.0)
[2018-06-13] MEDS: Sodium Chloride 0.9% 1,000 ML IV SCH ×2 (04:38→15:54)
--- NOTE | 2018-06-13 05:11 | HP ---
PRIMARY CARE PROVIDER: [facility] [place], [place]. CHIEF COMPLAINT: Intentional overdose. HISTORY OF PRESENT ILLNESS: This is a 58-year-old male, who [facility] after apparently ingesting 7 pills of his valproic acid. The history is difficult to obtain as patient with known history of schizophrenia and unable to provide a coherent history during the interview. Review of electronic medical record from the emergency room states a prior history of schizophrenia as well as polysubstance abuse, but patient apparently had denied any specific suicidal or homicidal ideation. The patient does admit to daily alcohol use with history of depression and schizophrenia. The patient with multiple prescription medication bottles accompanying him in the hospital and an unclear amount of valproic acid that was ingested. The patient was evaluated in the emergency room with a valproic acid level noted on 05/20 with an upper limit of 100 on lab report. The patient received lactated Ringer's intravenously, as well as cefepime and normal saline. The patient was transferred to the Critical Care Unit for further evaluation and monitoring. PAST MEDICAL HISTORY: 1. Schizophrenia. 2. Depression. 3. Polysubstance abuse. 4. Alcohol abuse. 5. History of genital herpes. 6. Hepatitis C. 7. Diabetes mellitus type 2. 8. Hypertension. 9. Dyslipidemia. 10. History of incarceration. PAST SURGICAL HISTORY: Reviewed and negative. CURRENT MEDICATIONS: 1. Acyclovir 400 mg p.o. b.i.d. 2. Enteric-coated aspirin 81 mg p.o. daily. 3. Depakote Extended Release 500 mg p.o. b.i.d. 4. Levothyroxine 150 mcg p.o. daily. 5. Loratadine 10 mg p.o. daily. 6. Metoprolol tartrate 100 mg p.o. daily. 7. Oxcarbazepine 300 mg p.o. b.i.d. 8. Paliperidone Extended Release 9 mg p.o. daily. 9. Hydrochlorothiazide 25 mg p.o. daily. 10. Lisinopril 40 mg p.o. daily. ALLERGIES: NO KNOWN DRUG ALLERGIES. FAMILY HISTORY: Positive for hypertension. SOCIAL HISTORY: The patient lives in the [place] area with his sister. Unemployed. History of incarceration. Smokes up to one pack of cigarettes daily. Alcohol use daily. No illicit drug use reported. REVIEW OF SYSTEMS: CONSTITUTIONAL: Negative for weight loss or gain, ability to conduct usual activities. SKIN: Negative for rash, itching. EYES: Negative for double vision, pain. ENT/MOUTH: Negative for nose bleeding, neck stiffness, pain, tenderness. CARDIOVASCULAR: Negative for palpitations, dyspnea on exertion, orthopnea. RESPIRATORY: Negative for shortness of breath, wheezing, cough, hemoptysis, fever or night sweats. GASTROINTESTINAL: Negative for poor appetite, abdominal pain, heartburn, nausea, vomiting, constipation, or diarrhea. GENITOURINARY: Negative for urgency, frequency, dysuria, nocturia. MUSCULOSKELETAL: Negative for pain, swelling. NEUROLOGIC/PSYCHIATRIC: Negative for anxiety, depression. ALLERGY/IMMUNOLOGIC: Negative for skin rash, bleeding tendency. Otherwise negative except as stated per HPI. PHYSICAL EXAMINATION: VITAL SIGNS: Currently, blood pressure 123/67, pulse 96, respiratory rate 26, temperature 100.3 degrees Fahrenheit, O2 saturation 94% on room air. GENERAL APPEARANCE: This is a 58-year-old male, alert and responsive, in no acute distress. HEENT: Pupils are equal, round, reactive to light and accommodation. Extraocular muscles are intact. No scleral icterus. Mild conjunctival injection bilaterally. Nares are patent. OP is clear. NECK: Supple. No cervical adenopathy. No thyromegaly. No carotid bruits. No JVD appreciated. Cervical spine with full active and passive range of motion. No meningeal signs noted. CHEST: Lungs are clear to auscultation bilaterally. CARDIOVASCULAR: S1 and S2 without noted murmur, rub, or gallop. ABDOMEN: Rounded, soft, nontender, and nondistended. Bowel sounds are positive in all 4 quadrants. No hepatosplenomegaly. No abdominal bruits. No rebound or guarding appreciated. EXTREMITIES: Warm and dry with fair turgor. No clubbing, cyanosis, or asymmetric edema appreciated. Pulses palpable distally at the dorsalis pedis, posterior tibial, and popliteal arteries bilaterally. Capillary refill less than 2 seconds. NEUROLOGIC: Cranial nerves 2 through 12 are grossly intact. Alert and oriented x2. Rapid cycling speech and thoughts. Not observed ambulatory during this exam. PERTINENT LAB AND X-RAY FINDINGS: Sodium 130, potassium 3.4, chloride 98, CO2 of 20, BUN 42, creatinine 1.44, estimated GFR 61, calcium 9.3, magnesium level 2.3, AST 133, ALT is 30, alkaline phosphatase 50, serum ammonia level 24, total CK 6058. TSH 0.71. CBC showed a white blood cell count of 16.9, hemoglobin 11, hematocrit 31, platelet count 217 with 39% bands, 42% neutrophils. Tox screen showed valproic acid level of 212. Plasma alcohol level less than 10. CT of the brain without contrast dated 06/12/2018, showed no acute intracranial process. Portable chest x-ray dated 06/12/2018, showed bibasilar opacities, left greater than right. EKG dated 06/12/2018 by my interpretation shows sinus tachycardia with heart rates in the 110s. Normal R-wave progression noted in the precordial leads. Normal axis. No acute ST-T wave changes appreciated. This EKG is by my review. ASSESSMENT AND PLAN: 1. Valproic acid overdose. Questionable intentional overdose with suicidal intent. The patient will be placed in the intermediate care unit. We will continue sitter for one-on-one observation. We will continue IV fluids with normal saline at 100 mL/h. Avoid Depakote. Repeat complete metabolic profile in the a.m. 2. Bibasilar pneumonia. Suspect bacterial etiology with gram-positive cocci. We will continue Levaquin 750 mg IV q.24 hours. General pulmonary supportive management. Oxygen as needed. 3. Hyponatremia. We will continue normal saline at 100 mL/h. Serial sodium monitoring. 4. Acute kidney injury. Continue IV fluids as outlined previously. Avoid nephrotoxic agents and limit contrast exposure. Serial creatinine monitoring. 5. Acute rhabdomyolysis. We will continue IV fluids as outlined previously. Serial CK monitoring. 6. Schizophrenia. We will consult [facility] in the a.m. for disposition planning. The patient may benefit from inpatient psychiatric care. 7. Transaminitis. Suspect secondary to alcohol abuse. We will repeat LFTs in the a.m. Avoid hepatotoxic medications. 8. Prophylaxis. SCDs while in bed. Pepcid 20 mg p.o. b.i.d. Sitter for one-on-one. 9. Code status is full. Surrogate medical decision maker is the patient's sister. Job ID: [id number]
[2018-06-13] MEDS: Levothyroxine 150 MCG TAB PO SCH (05:29)
[2018-06-13 05:45] LABS: Band 15 % (5-11); Hemoglobin 9.2 g/dL (14.0-18.0); Lymphocytes 11 % (21-51); MDiff Complete? YES; Mean Corpuscular HGB CONC 32.1 g/dL (32.0-36.0); Mean Corpuscular Hemoglobin 30.3 pg (27.0-31.0); Mean Corpuscular Volume 94.3 fL (78.0-98.0); Monocytes 1 % (0-10); Neutrophil 73 % (42-75); Platelet Count 202 thou/uL (130-400); Platelet Morphology Comment Appears Adequate; RBC Distribution Width 11.7 % (11.5-14.5); Red Blood Cell (RBC) Count 3.02 mill/uL (4.70-6.10); White Blood Cell (WBC) Count 13.4 thou/uL (4.8-10.8)
[2018-06-13 05:48] LABS: ALT (SGPT) 27 U/L (8-55); AST (SGOT) 111 U/L (5-34); Albumin 3.3 g/dL (3.5-5.0); Alkaline Phosphatase 56 U/L (40-150); Anion Gap 16 mmol/L (10-20); BUN (Urea Nitrogen) 40 mg/dL (8.4-25.7); Bilirubin, Total 0.8 mg/dL (0.2-1.2); CK (CPK) 3891 U/L (30-200); Calc. Creatinine Clearance 70 mL/min (70-130); Calcium 9.3 mg/dL (7.8-10.44); Carbon Dioxide 19 mmol/L (22-29); Chloride 98 mmol/L (98-107); Estimated GFR-MDRD 66; Globulin 3.6 g/dL (2.4-3.5); Glucose 89 mg/dL (70-105); Potassium 3.7 mmol/L (3.5-5.1); Protein, Total 6.9 g/dL (6.0-8.3); Sodium 129 mmol/L (136-145)
[2018-06-13] MEDS: Famotidine 20 MG TAB PO SCH ×2 (10:10→20:37)
[2018-06-13] MEDS: Metoprolol Tartrate 100 MG TAB PO SCH (11:40)
[2018-06-13] MEDS: OXcarbazepine 300 MG TAB PO SCH ×2 (12:27→20:37)
[2018-06-13 12:40] LABS: Medtox Reader # READER 1
[2018-06-13 12:41] LABS: Amphetamine Not Detected (NotDetected); Barbiturates Screen Not Detected (NotDetected); Benzodiazepine Screen Not Detected (NotDetected); Cocaine Metabolite Screen Not Detected (NotDetected); Medtox Control Line Valid? VALID (VALID); Methadone Not Detected (NotDetected); Methamphetamine Not Detected (NotDetected); Opiate Screen Not Detected (NotDetected); Oxycodone Screen Not Detected (NotDetected); Phencyclidine (PCP) Not Detected (NotDetected); THC/Cannabinoid Screen Not Detected (NotDetected); Tricyclic Screen Not Detected (NotDetected)
--- NOTE | 2018-06-13 19:11 | PDOC.EVN ---
Event Note - Event Note Event Note: pt ema nd examned in CCU.awake and rambling chart reviewed in detail cont moitoring on medical floor depakote level almost back to NL rechek labs in am. CPK better.cont IVF [facility] HD stable. empiric abx for possible aspiration PNA.will follow
[2018-06-13] MEDS: Lorazepam 1 MG TAB PO PRN (22:24)
[2018-06-14] MEDS: Sodium Chloride 0.9% 1,000 ML IV SCH ×3 (02:07→20:00)
[2018-06-14] MEDS ORDERED: Lorazepam 2 MG/ML VIAL SLOW IVP SCH (04:00)
[2018-06-14] MEDS: Levothyroxine 150 MCG TAB PO SCH (05:00)
[2018-06-14] MEDS: OXcarbazepine 300 MG TAB PO SCH ×2 (08:27→21:30)
[2018-06-14] MEDS: Famotidine 20 MG TAB PO SCH ×2 (08:27→21:30)
[2018-06-14] MEDS: Metoprolol Tartrate 100 MG TAB PO SCH (08:28)
[2018-06-14 08:49] LABS: #Monocytes 0.8 thou/uL (0.11-0.59); #Neutrophils 7.2 thou/uL (1.40-6.50); %Basophils 0.1 % (0.0-1.0); %Eosinophils 0.1 % (0.0-10.0); %Lymphocytes 11.5 % (21.0-51.0); %Monocytes 8.5 % (0.0-10.0); %Neutrophils 79.8 % (42.0-75.0); Hemoglobin 9.9 g/dL (14.0-18.0); Mean Corpuscular HGB CONC 32.5 g/dL (32.0-36.0); Mean Corpuscular Hemoglobin 30.4 pg (27.0-31.0); Mean Corpuscular Volume 93.5 fL (78.0-98.0); Mean Platelet Volume 7.7 fL (7.4-10.4); Platelet Count 223 thou/uL (130-400); RBC Distribution Width 11.8 % (11.5-14.5); Red Blood Cell (RBC) Count 3.26 mill/uL (4.70-6.10)
[2018-06-14] MEDS ORDERED: PALIPERIDONE 6 MG PO SCH (09:00)
[2018-06-14 09:13] LABS: Anion Gap 13 mmol/L (10-20); BUN (Urea Nitrogen) 18 mg/dL (8.4-25.7); CK (CPK) 1811 U/L (30-200); Calc. Creatinine Clearance 101 mL/min (70-130); Calcium 9.5 mg/dL (7.8-10.44); Carbon Dioxide 21 mmol/L (22-29); Chloride 101 mmol/L (98-107); Estimated GFR-MDRD Greater than 90; Glucose 94 mg/dL (70-105); Potassium 3.6 mmol/L (3.5-5.1); Sodium 131 mmol/L (136-145)
--- NOTE | 2018-06-14 10:26 | PDOC.PN ---
- Subjective Encounter Start Date: 06/14/18 Encounter Start Time: 09:25 -: old records requested/rev Patient seen and examined. No new complaints. No overnight events no fever,no cough today - Objective Resuscitation Status - Order Detail: 06/13/18 02:57 Resuscitation Status Routine Resuscitation Status: FULL: Full Resuscitation MAR Reviewed: Yes Vital Signs & Weight: Vital Signs (12 hours) Temp Pulse Resp BP Pulse Ox 06/14/18 07:49 98.5 F 84 20 144/82 H 92 L 06/14/18 07:45 98.5 F 84 18 144/82 H 92 L 06/14/18 04:00 98.2 F 87 18 126/63 96 06/14/18 00:00 98.4 F 65 18 141/65 H 97 Weight Weight 184 lb 4.903 oz Most Recent Monitor Data Heart Rate from ECG 82 NIBP 152/88 NIBP BP-Mean 109 Respiration from ECG 18 SpO2 98 I&O: 06/13/18 06/14/18 06/15/18 06:59 06:59 07:59 Intake Total 630 840 Output Total 600 1950 Balance 30 -1110 Result Diagrams: 06/14/18 08:27 06/14/18 08:27 Phys Exam - Physical Examination Constitutional: NAD HEENT: PERRLA, moist MMs, sclera anicteric Neck: no JVD, supple Respiratory: no wheezing, no rhonchi reduced air entry at base Cardiovascular: RRR, no significant murmur, no rub Gastrointestinal: soft, non-tender, no distention, positive bowel sounds Musculoskeletal: no edema, pulses present Neurological: non-focal Lymphatic: no nodes Psychiatric: normal affect Skin: no rash, normal turgor Dx/Plan (1) Acute kidney failure Status: Acute (2) Acute metabolic encephalopathy Code(s): G93.41 - METABOLIC ENCEPHALOPATHY Status: Acute (3) Aspiration pneumonia Code(s): J69.0 - PNEUMONITIS DUE TO INHALATION OF FOOD AND VOMIT Status: Acute (4) Hyponatremia Code(s): E87.1 - HYPO-OSMOLALITY AND HYPONATREMIA Status: Acute (5) Overdose Code(s): T50.901A - POISONING BY UNSP DRUG/MEDS/BIOL SUBST, ACCIDENTAL, INIT Status: Acute (6) Rhabdomyolysis Code(s): M62.82 - RHABDOMYOLYSIS Status: Acute (7) Anxiety and depression Code(s): F41.9 - ANXIETY DISORDER, UNSPECIFIED; F32.9 - MAJOR DEPRESSIVE DISORDER, SINGLE EPISODE, UNSPECIFIED Status: Chronic Comment: (8) Chronic hepatitis C Code(s): B18.2 - CHRONIC VIRAL HEPATITIS C Status: Chronic (9) Dyslipidemia Code(s): E78.5 - HYPERLIPIDEMIA, UNSPECIFIED Status: Chronic (10) Hypertension Code(s): I10 - ESSENTIAL (PRIMARY) HYPERTENSION Status: Chronic Qualifiers: Comment: (11) Hypothyroidism Code(s): E03.9 - HYPOTHYROIDISM, UNSPECIFIED Status: Chronic Comment: (12) Macrocytic anemia Code(s): D53.9 - NUTRITIONAL ANEMIA, UNSPECIFIED Status: Chronic (13) Schizophrenia Code(s): F20.9 - SCHIZOPHRENIA, UNSPECIFIED Status: Chronic - Plan cont current plan of care, continue antibiotics, respiratory therapy * home meds reconciled * continue empiric antibiotics * continue IVF * repeat labs tomorrow * ambulate as tolerated. Review of Systems - Review of Systems ENT: negative: Ear Pain, Ear Discharge, Nose Pain, Nose Discharge, Nose Congestion, Mouth Pain, Mouth Swelling, Throat Pain, Throat Swelling, Other Respiratory: negative: Cough, Dry, Shortness of Breath, Hemoptysis, SOB with Excertion, Pleuritic Pain, Sputum, Wheezing Cardiovascular: negative: chest pain, palpitations, orthopnea, paroxysmal nocturnal dyspnea, edema, light headedness, other Gastrointestinal: negative: Nausea, Vomiting, Abdominal Pain, Diarrhea, Constipation, Melena, Hematochezia, Other Genitourinary: negative: Dysuria, Frequency, Incontinence, Hematuria, Retention , Other Musculoskeletal: negative: Neck Pain, Shoulder Pain, Arm Pain, Back Pain, Hand Pain, Leg Pain, Foot Pain, Other - Medications/Allergies Allergies/Adverse Reactions: Allergies Allergy/AdvReac Type Severity Reaction Status Date / Time No Known Allergies Allergy Verified 02/06/18 05:41 Medications: Current Medications Acetaminophen (Tylenol) 1,000 mg PO Q6H PRN PRN Reason: Mild Pain (1-3) Famotidine (Pepcid) 20 mg PO BID [facility] Last Admin: 06/14/18 08:27 Dose: 20 mg Hydralazine HCl (Apresoline) 10 mg SLOW IVP Q4H PRN PRN Reason: SBP > 180 and HR < 70 Sodium Chloride (Normal Saline 0.9%) 1,000 mls @ 100 mls/hr IV .Q10H [facility] Last Admin: 06/14/18 08:32 Dose: Not Given Levofloxacin 750 mg/ Device 150 mls @ 100 mls/hr IVPB Q24HR [facility] Last Admin: 06/14/18 04:59 Dose: 150 mls Levothyroxine Sodium (Synthroid) 150 mcg PO 0600 [facility] Last Admin: 06/14/18 05:00 Dose: 150 mcg Lorazepam (Ativan) 1 mg PO Q6H PRN PRN Reason: Anxiety Last Admin: 06/13/18 22:24 Dose: 1 mg Metoprolol Tartrate (Lopressor) 100 mg PO DAILY [facility] Last Admin: 06/14/18 08:28 Dose: Not Given Ondansetron HCl (Zofran Odt) 4 mg PO Q6H PRN PRN Reason: Nausea/Vomiting Ondansetron HCl (Zofran) 4 mg IVP Q6H PRN PRN Reason: Nausea/Vomiting Oxcarbazepine (Trileptal) 300 mg PO BID [facility] Last Admin: 06/14/18 08:27 Dose: 300 mg Paliperidone 6 Mg 0 each PO DAILY [facility] Sodium Chloride (Flush - Normal Saline) 10 ml IVF Q12HR [facility] Last Admin: 06/14/18 08:28 Dose: 10 ml Sodium Chloride (Flush - Normal Saline) 10 ml IVF PRN PRN PRN Reason: Saline Flush
[2018-06-14] MEDS: traZODone HCl 50 MG TAB PO SCH (21:30)
--- NOTE | 2018-06-14 21:35 | EKG ---
Test Reason : Blood Pressure : / mmHG Vent. Rate : 112 BPM Atrial Rate : 112 BPM P-R Int : 188 ms QRS Dur : 086 ms QT Int : 316 ms P-R-T Axes : 057 022 039 degrees QTc Int : 431 ms Sinus tachycardia Possible Left atrial enlargement Septal infarct , age undetermined Abnormal ECG Confirmed by PATRICE HUTTON ([id number]), food editor MARCO WELLS ([id number]) on 06/14/2018 9:34:40 PM Referred By: Confirmed By:PATRICE HUTTON
[2018-06-15] MEDS: traZODone HCl 50 MG TAB PO SCH ×2 (03:14→20:48)
[2018-06-15] MEDS: Sodium Chloride 0.9% 1,000 ML IV SCH ×2 (05:10→20:49)
[2018-06-15] MEDS: Levothyroxine 150 MCG TAB PO SCH (06:16)
[2018-06-15 06:44] LABS: Band 2 % (5-11); Hemoglobin 9.7 g/dL (14.0-18.0); Lymphocytes 35 % (21-51); MDiff Complete? YES; Mean Corpuscular HGB CONC 30.8 g/dL (32.0-36.0); Mean Corpuscular Hemoglobin 29.9 pg (27.0-31.0); Mean Corpuscular Volume 97.1 fL (78.0-98.0); Monocytes 10 % (0-10); Myelocyte 1 % (0-0); Neutrophil 52 % (42-75); Platelet Count 222 thou/uL (130-400); Platelet Morphology Comment Appears Adequate; RBC Distribution Width 11.9 % (11.5-14.5); Red Blood Cell (RBC) Count 3.22 mill/uL (4.70-6.10); White Blood Cell (WBC) Count 5.8 thou/uL (4.8-10.8)
[2018-06-15 06:46] LABS: ALT (SGPT) 32 U/L (8-55); AST (SGOT) 65 U/L (5-34); Albumin 3.1 g/dL (3.5-5.0); Alkaline Phosphatase 38 U/L (40-150); Anion Gap 12 mmol/L (10-20); BUN (Urea Nitrogen) 13 mg/dL (8.4-25.7); Bilirubin, Total 0.4 mg/dL (0.2-1.2); CK (CPK) 912 U/L (30-200); Calc. Creatinine Clearance 111 mL/min (70-130); Calcium 9.3 mg/dL (7.8-10.44); Carbon Dioxide 21 mmol/L (22-29); Chloride 103 mmol/L (98-107); Estimated GFR-MDRD Greater than 90; Globulin 3.4 g/dL (2.4-3.5); Glucose 90 mg/dL (70-105); Potassium 3.4 mmol/L (3.5-5.1); Protein, Total 6.5 g/dL (6.0-8.3); Sodium 133 mmol/L (136-145)
[2018-06-15] MEDS ORDERED: Potassium Chloride 20 MEQ TAB PO SCH (07:30)
[2018-06-15] MEDS: Metoprolol Tartrate 100 MG TAB PO SCH (09:04)
[2018-06-15] MEDS: OXcarbazepine 300 MG TAB PO SCH ×2 (09:05→20:48)
[2018-06-15] MEDS: Famotidine 20 MG TAB PO SCH ×2 (09:05→20:47)
--- NOTE | 2018-06-15 10:00 | PDOC.PN ---
- Subjective Encounter Start Date: 06/15/18 Encounter Start Time: 08:55 Patient seen and examined. No new complaints. No overnight events - Objective Resuscitation Status - Order Detail: 06/13/18 02:57 Resuscitation Status Routine Resuscitation Status: FULL: Full Resuscitation MAR Reviewed: Yes Vital Signs & Weight: Vital Signs (12 hours) Temp Pulse Resp BP Pulse Ox 06/15/18 08:00 95 06/15/18 07:52 98.1 F 83 20 130/69 95 06/15/18 03:30 99.1 F 73 28 H 135/67 93 L 06/15/18 00:00 92 L Weight Weight 184 lb 4.903 oz Most Recent Monitor Data Heart Rate from ECG 82 NIBP 152/88 NIBP BP-Mean 109 Respiration from ECG 18 SpO2 98 I&O: 06/14/18 06/15/18 06/16/18 05:59 06:59 06:59 Intake Total Output Total Balance Result Diagrams: 06/15/18 06:01 06/15/18 06:01 Phys Exam - Physical Examination Constitutional: NAD HEENT: PERRLA, moist MMs, sclera anicteric, 2+ tonsils Neck: no JVD, supple Respiratory: no wheezing, no rales, no rhonchi Cardiovascular: RRR, no significant murmur, no rub Gastrointestinal: soft, non-tender, no distention, positive bowel sounds Musculoskeletal: no edema, pulses present Neurological: non-focal, normal sensation, moves all 4 limbs Lymphatic: no nodes Psychiatric: normal affect, A&O x 3 Skin: no rash, normal turgor Dx/Plan (1) Acute kidney failure Status: Acute (2) Acute metabolic encephalopathy Code(s): G93.41 - METABOLIC ENCEPHALOPATHY Status: Acute (3) Aspiration pneumonia Code(s): J69.0 - PNEUMONITIS DUE TO INHALATION OF FOOD AND VOMIT Status: Acute (4) Hyponatremia Code(s): E87.1 - HYPO-OSMOLALITY AND HYPONATREMIA Status: Acute (5) Overdose Code(s): T50.901A - POISONING BY UNSP DRUG/MEDS/BIOL SUBST, ACCIDENTAL, INIT Status: Acute (6) Rhabdomyolysis Code(s): M62.82 - RHABDOMYOLYSIS Status: Acute (7) Anxiety and depression Code(s): F41.9 - ANXIETY DISORDER, UNSPECIFIED; F32.9 - MAJOR DEPRESSIVE DISORDER, SINGLE EPISODE, UNSPECIFIED Status: Chronic Comment: (8) Chronic hepatitis C Code(s): B18.2 - CHRONIC VIRAL HEPATITIS C Status: Chronic (9) Dyslipidemia Code(s): E78.5 - HYPERLIPIDEMIA, UNSPECIFIED Status: Chronic (10) Hypertension Code(s): I10 - ESSENTIAL (PRIMARY) HYPERTENSION Status: Chronic Qualifiers: Comment: (11) Hypothyroidism Code(s): E03.9 - HYPOTHYROIDISM, UNSPECIFIED Status: Chronic Comment: (12) Macrocytic anemia Code(s): D53.9 - NUTRITIONAL ANEMIA, UNSPECIFIED Status: Chronic (13) Schizophrenia Code(s): F20.9 - SCHIZOPHRENIA, UNSPECIFIED Status: Chronic (14) Tobacco abuse Code(s): Z72.0 - TOBACCO USE Status: Chronic (15) Hypokalemia Code(s): E87.6 - HYPOKALEMIA Status: Acute - Plan cont current plan of care, continue antibiotics * continue empiric antibiotics * medication reviewed as below * symptomatic treatment * continue IVF * repeat labs tomorrow * counselled to avoid smoking. * add nicotin patch Review of Systems - Review of Systems ENT: negative: Ear Pain, Ear Discharge, Nose Pain, Nose Discharge, Nose Congestion, Mouth Pain, Mouth Swelling, Throat Pain, Throat Swelling, Other Respiratory: negative: Cough, Dry, Shortness of Breath, Hemoptysis, SOB with Excertion, Pleuritic Pain, Sputum, Wheezing Cardiovascular: negative: chest pain, palpitations, orthopnea, paroxysmal nocturnal dyspnea, edema, light headedness, other Gastrointestinal: negative: Nausea, Vomiting, Abdominal Pain, Diarrhea, Constipation, Melena, Hematochezia, Other Genitourinary: negative: Dysuria, Frequency, Incontinence, Hematuria, Retention , Other Musculoskeletal: negative: Neck Pain, Shoulder Pain, Arm Pain, Back Pain, Hand Pain, Leg Pain, Foot Pain, Other - Medications/Allergies Allergies/Adverse Reactions: Allergies Allergy/AdvReac Type Severity Reaction Status Date / Time No Known Allergies Allergy Verified 02/06/18 05:41 Medications: Current Medications Acetaminophen (Tylenol) 1,000 mg PO Q6H PRN PRN Reason: Mild Pain (1-3) Last Admin: 06/15/18 06:16 Dose: 1,000 mg Famotidine (Pepcid) 20 mg PO BID [facility] Last Admin: 06/15/18 09:05 Dose: 20 mg Hydralazine HCl (Apresoline) 10 mg SLOW IVP Q4H PRN PRN Reason: SBP > 180 and HR < 70 Sodium Chloride (Normal Saline 0.9%) 1,000 mls @ 100 mls/hr IV .Q10H [facility] Last Admin: 06/15/18 05:10 Dose: Not Given Levofloxacin 750 mg/ Device 150 mls @ 100 mls/hr IVPB Q24HR [facility] Last Admin: 06/15/18 03:30 Dose: Not Given Levothyroxine Sodium (Synthroid) 150 mcg PO 0600 [facility] Last Admin: 06/15/18 06:16 Dose: 150 mcg Lorazepam (Ativan) 1 mg PO Q6H PRN PRN Reason: Anxiety Last Admin: 06/13/18 22:24 Dose: 1 mg Metoprolol Tartrate (Lopressor) 100 mg PO DAILY [facility] Last Admin: 06/15/18 09:04 Dose: Not Given Ondansetron HCl (Zofran Odt) 4 mg PO Q6H PRN PRN Reason: Nausea/Vomiting Ondansetron HCl (Zofran) 4 mg IVP Q6H PRN PRN Reason: Nausea/Vomiting Oxcarbazepine (Trileptal) 300 mg PO BID [facility] Last Admin: 06/15/18 09:05 Dose: 300 mg Paliperidone 6 Mg 0 each PO DAILY [facility] Quetiapine Fumarate (Seroquel) 50 mg PO DAILY [facility] Last Admin: 06/15/18 09:05 Dose: 50 mg Sodium Chloride (Flush - Normal Saline) 10 ml IVF Q12HR [facility] Last Admin: 06/15/18 09:06 Dose: Not Given Sodium Chloride (Flush - Normal Saline) 10 ml IVF PRN PRN PRN Reason: Saline Flush Trazodone HCl (Desyrel) 100 mg PO HS [facility] Last Admin: 06/15/18 03:14 Dose: 100 mg
[2018-06-15] MEDS: Lorazepam 1 MG TAB PO PRN (20:48)
[2018-06-15] MEDS: Benzonatate 100 MG CAP PO PRN (21:59)
[2018-06-16] MEDS: Sodium Chloride 0.9% 1,000 ML IV SCH ×2 (01:36→14:00)
[2018-06-16] MEDS: Benzonatate 100 MG CAP PO PRN (06:05)
[2018-06-16] MEDS: Levothyroxine 150 MCG TAB PO SCH (06:06)
[2018-06-16] MEDS: OXcarbazepine 300 MG TAB PO SCH (08:40)
[2018-06-16] MEDS: Famotidine 20 MG TAB PO SCH (08:40)
[2018-06-16] MEDS: Metoprolol Tartrate 100 MG TAB PO SCH (08:41)
[2018-06-16 09:45] LABS: Anion Gap 12 mmol/L (10-20); BUN (Urea Nitrogen) 11 mg/dL (8.4-25.7); CK (CPK) 586 U/L (30-200); Calc. Creatinine Clearance 111 mL/min (70-130); Calcium 9.8 mg/dL (7.8-10.44); Carbon Dioxide 22 mmol/L (22-29); Chloride 100 mmol/L (98-107); Estimated GFR-MDRD Greater than 90; Glucose 97 mg/dL (70-105); Potassium 3.8 mmol/L (3.5-5.1); Sodium 130 mmol/L (136-145)
--- NOTE | 2018-06-16 10:24 | PDOC.PN ---
- Subjective Encounter Start Date: 06/16/18 Encounter Start Time: 07:20 Patient seen and examined. No new complaints. No overnight events - Objective Resuscitation Status - Order Detail: 06/13/18 02:57 Resuscitation Status Routine Resuscitation Status: FULL: Full Resuscitation MAR Reviewed: Yes Vital Signs & Weight: Vital Signs (12 hours) Temp Pulse Resp BP Pulse Ox 06/16/18 07:22 98.5 F 85 16 127/67 96 06/16/18 03:03 96 06/16/18 00:07 99.1 F 87 16 143/81 H 96 Weight Weight 184 lb 4.903 oz Most Recent Monitor Data Heart Rate from ECG 82 NIBP 152/88 NIBP BP-Mean 109 Respiration from ECG 18 SpO2 98 I&O: 06/15/18 06/16/18 06/17/18 06:59 06:59 06:59 Intake Total 600 Balance 600 Result Diagrams: 06/15/18 06:01 06/16/18 08:00 Phys Exam - Physical Examination Constitutional: NAD HEENT: PERRLA, moist MMs, sclera anicteric Neck: no JVD, supple Respiratory: no wheezing, no rales, no rhonchi Cardiovascular: RRR, no significant murmur, no rub Gastrointestinal: soft, non-tender, no distention, positive bowel sounds Musculoskeletal: no edema, pulses present Neurological: non-focal, normal sensation, moves all 4 limbs Lymphatic: no nodes Psychiatric: normal affect, A&O x 3 Skin: no rash, normal turgor Dx/Plan (1) Acute kidney failure Status: Acute (2) Acute metabolic encephalopathy Code(s): G93.41 - METABOLIC ENCEPHALOPATHY Status: Acute (3) Aspiration pneumonia Code(s): J69.0 - PNEUMONITIS DUE TO INHALATION OF FOOD AND VOMIT Status: Acute (4) Hyponatremia Code(s): E87.1 - HYPO-OSMOLALITY AND HYPONATREMIA Status: Acute (5) Overdose Code(s): T50.901A - POISONING BY UNSP DRUG/MEDS/BIOL SUBST, ACCIDENTAL, INIT Status: Acute (6) Rhabdomyolysis Code(s): M62.82 - RHABDOMYOLYSIS Status: Acute (7) Anxiety and depression Code(s): F41.9 - ANXIETY DISORDER, UNSPECIFIED; F32.9 - MAJOR DEPRESSIVE DISORDER, SINGLE EPISODE, UNSPECIFIED Status: Chronic Comment: (8) Chronic hepatitis C Code(s): B18.2 - CHRONIC VIRAL HEPATITIS C Status: Chronic (9) Dyslipidemia Code(s): E78.5 - HYPERLIPIDEMIA, UNSPECIFIED Status: Chronic (10) Hypertension Code(s): I10 - ESSENTIAL (PRIMARY) HYPERTENSION Status: Chronic Qualifiers: Comment: (11) Hypothyroidism Code(s): E03.9 - HYPOTHYROIDISM, UNSPECIFIED Status: Chronic Comment: (12) Macrocytic anemia Code(s): D53.9 - NUTRITIONAL ANEMIA, UNSPECIFIED Status: Chronic (13) Schizophrenia Code(s): F20.9 - SCHIZOPHRENIA, UNSPECIFIED Status: Chronic (14) Tobacco abuse Code(s): Z72.0 - TOBACCO USE Status: Chronic (15) Hypokalemia Code(s): E87.6 - HYPOKALEMIA Status: Acute - Plan cont current plan of care, social media specialist * medication reviewed as below * symptomatic treatment * see discharge sam.. Review of Systems - Review of Systems ENT: negative: Ear Pain, Ear Discharge, Nose Pain, Nose Discharge, Nose Congestion, Mouth Pain, Mouth Swelling, Throat Pain, Throat Swelling, Other Respiratory: negative: Cough, Dry, Shortness of Breath, Hemoptysis, SOB with Excertion, Pleuritic Pain, Sputum, Wheezing Cardiovascular: negative: chest pain, palpitations, orthopnea, paroxysmal nocturnal dyspnea, edema, light headedness, other Gastrointestinal: negative: Nausea, Vomiting, Abdominal Pain, Diarrhea, Constipation, Melena, Hematochezia, Other Genitourinary: negative: Dysuria, Frequency, Incontinence, Hematuria, Retention , Other Musculoskeletal: negative: Neck Pain, Shoulder Pain, Arm Pain, Back Pain, Hand Pain, Leg Pain, Foot Pain, Other - Medications/Allergies Allergies/Adverse Reactions: Allergies Allergy/AdvReac Type Severity Reaction Status Date / Time No Known Allergies Allergy Verified 02/06/18 05:41 Medications: Current Medications Acetaminophen (Tylenol) 1,000 mg PO Q6H PRN PRN Reason: Mild Pain (1-3) Last Admin: 06/15/18 06:16 Dose: 1,000 mg Benzonatate (Tessalon) 100 mg PO TIDPRN PRN PRN Reason: Cough Last Admin: 06/16/18 06:05 Dose: 100 mg Famotidine (Pepcid) 20 mg PO BID [facility] Last Admin: 06/16/18 08:40 Dose: 20 mg Hydralazine HCl (Apresoline) 10 mg SLOW IVP Q4H PRN PRN Reason: SBP > 180 and HR < 70 Sodium Chloride (Normal Saline 0.9%) 1,000 mls @ 100 mls/hr IV .Q10H [facility] Last Admin: 06/16/18 01:36 Dose: Not Given Levofloxacin 750 mg/ Device 150 mls @ 100 mls/hr IVPB Q24HR [facility] Last Admin: 06/16/18 04:25 Dose: Not Given Levothyroxine Sodium (Synthroid) 150 mcg PO 0600 [facility] Last Admin: 06/16/18 06:06 Dose: 150 mcg Lorazepam (Ativan) 1 mg PO Q6H PRN PRN Reason: Anxiety Last Admin: 06/15/18 20:48 Dose: 1 mg Metoprolol Tartrate (Lopressor) 100 mg PO DAILY [facility] Last Admin: 06/16/18 08:41 Dose: Not Given Ondansetron HCl (Zofran Odt) 4 mg PO Q6H PRN PRN Reason: Nausea/Vomiting Ondansetron HCl (Zofran) 4 mg IVP Q6H PRN PRN Reason: Nausea/Vomiting Oxcarbazepine (Trileptal) 300 mg PO BID [facility] Last Admin: 06/16/18 08:40 Dose: 300 mg Quetiapine Fumarate (Seroquel) 50 mg PO DAILY [facility] Last Admin: 06/16/18 08:40 Dose: 50 mg Sodium Chloride (Flush - Normal Saline) 10 ml IVF Q12HR [facility] Last Admin: 06/16/18 08:41 Dose: Not Given Sodium Chloride (Flush - Normal Saline) 10 ml IVF PRN PRN PRN Reason: Saline Flush Trazodone HCl (Desyrel) 100 mg PO HS [facility] Last Admin: 06/15/18 20:48 Dose: 100 mg
--- NOTE | 2018-06-16 11:04 | DIS ---
DATE OF ADMISSION: 06/12/2018 DATE OF DISCHARGE: 06/16/2018 PRIMARY CARE PHYSICIAN: Jeremiah Fleming. DISCHARGE DISPOSITION: Psych Facility. PRIMARY DISCHARGE DIAGNOSES: 1. Acute toxic metabolic encephalopathy, resolved. 2. Aspiration pneumonia, improved. 3. Acute kidney failure, improved. 4. Hypokalemia, improved. 5. Hyponatremia, improved. 6. Overdose with valproic acid. 7. Rhabdomyolysis. SECONDARY DISCHARGE DIAGNOSES: Tobacco abuse disorder, schizophrenia, macrocytic anemia, hypothyroidism, hypertension, dyslipidemia, chronic hepatitis C, anxiety and depression. PRIMARY PROCEDURE/OPERATION: None. RADIOLOGICAL INVESTIGATION: Chest x-ray showed basilar infiltration. CT brain negative for any acute intracranial process. WBC 5.8, hemoglobin 9.7, platelet 222. INR 1.2. Sodium 130, potassium 3.8, creatinine 0.84. CK 586. Urine drug screen negative. Valproic acid level 27.3. On admission, valproic acid level 211.6. DISCHARGE MEDICATIONS: Psych medication will defer to inpatient psychiatric team. The patient is currently on; 1. Trileptal 300 mg b.i.d. 2. Invega 9 mg daily. 3. Trazodone 100 mg p.o. at bedtime. 4. We are prescribing levofloxacin 500 mg p.o. daily for 5 more days for pneumonia. CONTRAINDICATION: None. CODE STATUS: Full code. INPATIENT REPORTING COORDINATOR: STEPHANIE was consulted while in hospital. TEST RESULT PENDING ON DISCHARGE: None. ALLERGIES: NO KNOWN DRUG ALLERGIES. DISCHARGE PLAN: Posthospital, the patient will be discharged to inpatient psych facility. HOSPITAL COURSE: A 58-year-old male with above-mentioned medical problem, who was admitted by Dr. Mcgrath. Please see his H and P for further details. The patient was admitted for valproic acid drug overdose. The patient was somnolent. The patient was having encephalopathy, which was related with a drug overdose as well as metabolic parameters. He was found with acute kidney injury. We monitored his valproic acid level and it was subsequently improved. While in the hospital, he was also treated with broad-spectrum antibiotic therapy for aspiration pneumonia. The patient was afebrile while in hospital and hemodynamically stable. The patient has underlying psychiatric problems, schizophrenia, anxiety, and depression. He needs inpatient psychiatric facility and that is why with help of , inpatient psychiatric facility will be arranged. Once we have arrangement done, then this patient is overall medically stable for discharge. His rhabdomyolysis improved. His acute kidney failure improved. His pneumonia is under control. Overall, the patient is medically stable for discharge. The patient is seen and examined at bedside today. Please see my progress note from today for further detail. Job ID: [id number]
[2018-06-16] MEDS: Lorazepam 1 MG TAB PO PRN (15:20)
[2018-06-16 16:48] VITALS: BP 154/89; TEMP 98.3
== END 2018-06-16 17:25 | DRG 917 ==
LOC: ERS 16:29 → ERHOLD 21:06 → CCU 06-13 00:15 → T4-B 06-13 15:25
PROVIDERS: ADMIT Emergency Medicine; ATTEND Emergency Medicine
DX: T42.6X2A Poisoning by other antiepileptic and sedative-hypnotic drugs, intentional self-harm, initial encounter (principal); G92 Toxic encephalopathy; J69.0 Pneumonitis due to inhalation of food and vomit; N17.9 Acute kidney failure, unspecified; E87.1 Hypo-osmolality and hyponatremia; M62.82 Rhabdomyolysis; Y92.9 Unspecified place or not applicable; E87.6 Hypokalemia; F17.210 Nicotine dependence, cigarettes, uncomplicated; F20.9 Schizophrenia, unspecified; D53.9 Nutritional anemia, unspecified; E03.9 Hypothyroidism, unspecified; I10 Essential (primary) hypertension; E78.5 Hyperlipidemia, unspecified; B18.2 Chronic viral hepatitis C; F41.8 Other specified anxiety disorders
CPT/HCPCS: 36415; 70450; 71045; 80048; 80053; 80164; 80306; 80307; 82140; 82550; 83735; 83930; 84443; 85007; 85025; 85027; 85610; 85730; 90471; 90686; 93005; 94760; 96361; 96365; G0008; J0692; J1956; J2060

== ENCOUNTER 2018-06-25 15:31 | Emergency (ER) | payer OTHER ==
[2018-06-25 16:37] LABS: #Basophils 0.1 thou/uL (0.0-0.2); #Lymphocytes 2.2 thou/uL (1.20-3.40); #Monocytes 0.7 thou/uL (0.11-0.59); #Neutrophils 3.3 thou/uL (1.40-6.50); %Basophils 0.8 % (0.0-1.0); %Eosinophils 0.8 % (0.0-10.0); %Lymphocytes 35.5 % (21.0-51.0); %Monocytes 10.8 % (0.0-10.0); Hemoglobin 10.5 g/dL (14.0-18.0); Mean Corpuscular Hemoglobin 31.3 pg (27.0-31.0); Mean Corpuscular Volume 94.8 fL (78.0-98.0); Mean Platelet Volume 7.3 fL (7.4-10.4); Platelet Count 360 thou/uL (130-400); RBC Distribution Width 12.9 % (11.5-14.5); Red Blood Cell (RBC) Count 3.37 mill/uL (4.70-6.10); White Blood Cell (WBC) Count 6.3 thou/uL (4.8-10.8)
--- NOTE | 2018-06-25 16:49 | RAD ---
CHEST 1 VIEW: Date: 06/25/18 HISTORY: Pain. COMPARISON: 06/12/18. FINDINGS: Normal cardiac silhouette. Pulmonary vessels and hilum are normal. Costophrenic angles are clear. No mass. No consolidation. No pneumothorax or osseous abnormalities. IMPRESSION: No acute cardiopulmonary process. POS: [facility]
[2018-06-25 16:59] LABS: ALT (SGPT) 21 U/L (8-55); AST (SGOT) 39 U/L (5-34); Albumin 3.9 g/dL (3.5-5.0); Alkaline Phosphatase 48 U/L (40-150); Anion Gap 14 mmol/L (10-20); BUN (Urea Nitrogen) 32 mg/dL (8.4-25.7); Bilirubin, Total 0.6 mg/dL (0.2-1.2); CK (CPK) 891 U/L (30-200); Calc. Creatinine Clearance 0 mL/min (70-130); Calcium 10.5 mg/dL (7.8-10.44); Carbon Dioxide 24 mmol/L (22-29); Chloride 98 mmol/L (98-107); Estimated GFR-MDRD 48; Globulin 4.2 g/dL (2.4-3.5); Glucose 86 mg/dL (70-105); Potassium 4.8 mmol/L (3.5-5.1); Protein, Total 8.1 g/dL (6.0-8.3); Sodium 131 mmol/L (136-145)
[2018-06-25] MEDS ORDERED: Aspirin Chewable 81 MG TAB ONE (19:41)
[2018-06-25 20:26] LABS: Troponin I Less than 0.010 ng/mL (< 0.028)
== END 2018-06-25 20:41 | disposition home or self-care (01) ==
LOC: ERS 15:31
DX: M62.82 Rhabdomyolysis (principal); E03.9 Hypothyroidism, unspecified; E11.9 Type 2 diabetes mellitus without complications; I10 Essential (primary) hypertension; F20.9 Schizophrenia, unspecified; F17.210 Nicotine dependence, cigarettes, uncomplicated; Z79.899 Other long term (current) drug therapy; Z79.82 Long term (current) use of aspirin
CPT/HCPCS: 36415; 71045; 80053; 82550; 84484; 85025; 93005; 96360

== ENCOUNTER 2018-06-26 01:31 | Emergency (ER) | payer OTHER ==
--- NOTE | 2018-06-28 17:22 | EKG ---
Test Reason : Blood Pressure : / mmHG Vent. Rate : 100 BPM Atrial Rate : 100 BPM P-R Int : 206 ms QRS Dur : 092 ms QT Int : 336 ms P-R-T Axes : 046 003 029 degrees QTc Int : 433 ms Normal sinus rhythm Septal infarct , age undetermined Abnormal ECG No changes from 25-JUN-2018 Confirmed by VIBHA MARAVILLA ([id number]), international editorial producer MARCO WELLS ([id number] on 06/28/2018 5:21:54 PM Referred By: Confirmed By:VIBHA MARAVILLA
== END 2018-06-26 01:55 | disposition home or self-care (01) ==
LOC: ERS 01:31
DX: R07.9 Chest pain, unspecified (principal); E03.9 Hypothyroidism, unspecified; E11.9 Type 2 diabetes mellitus without complications; I10 Essential (primary) hypertension; F20.9 Schizophrenia, unspecified; F17.210 Nicotine dependence, cigarettes, uncomplicated; Z79.899 Other long term (current) drug therapy; Z79.82 Long term (current) use of aspirin
CPT/HCPCS: 93005

== ENCOUNTER 2018-06-29 14:15 | Emergency (ER) | payer OTHER | END 2018-06-29 15:17 | disposition home or self-care (01) | LOC: ERS 14:15 | DX: R07.89 Other chest pain (principal); E03.9 Hypothyroidism, unspecified; E11.9 Type 2 diabetes mellitus without complications; F20.9 Schizophrenia, unspecified; I10 Essential (primary) hypertension; F17.210 Nicotine dependence, cigarettes, uncomplicated; Z86.19 Personal history of other infectious and parasitic diseases; Z79.82 Long term (current) use of aspirin; Z79.899 Other long term (current) drug therapy | CPT/HCPCS: 93005 ==

== ENCOUNTER 2018-06-29 22:22 | Emergency (ER) | payer OTHER ==
--- NOTE | 2018-06-30 | RAD ---
FRONTAL RADIOGRAPH CHEST: 06/29/2018 HISTORY: Chest pain. COMPARISON: 06/25/2018 FINDINGS: No pneumothorax, pleural fluid, focal consolidation, or alveolar edema. Heart and mediastinal contou rs are unremarkable. IMPRESSION: No acute findings. POS: [facility]
[2018-06-30 00:11] LABS: #Basophils 0.1 thou/uL (0.0-0.2); #Eosinphils 0.1 thou/uL (0.0-0.7); #Lymphocytes 1.9 thou/uL (1.20-3.40); #Monocytes 0.5 thou/uL (0.11-0.59); #Neutrophils 2.4 thou/uL (1.40-6.50); %Basophils 1.3 % (0.0-1.0); %Eosinophils 1.2 % (0.0-10.0); %Lymphocytes 38.9 % (21.0-51.0); %Monocytes 10.7 % (0.0-10.0); %Neutrophils 47.8 % (42.0-75.0); Hemoglobin 11.1 g/dL (14.0-18.0); Mean Corpuscular HGB CONC 32.3 g/dL (32.0-36.0); Mean Corpuscular Hemoglobin 31.2 pg (27.0-31.0); Mean Corpuscular Volume 96.5 fL (78.0-98.0); Mean Platelet Volume 7.9 fL (7.4-10.4); Platelet Count 223 thou/uL (130-400); RBC Distribution Width 12.8 % (11.5-14.5); Red Blood Cell (RBC) Count 3.56 mill/uL (4.70-6.10)
[2018-06-30 00:36] LABS: Acetaminophen Less than 6.0 mcg/mL (10.0-30.0); Alcohol Less than 10 mg/dL (Less than 10); Salicylate Less than 8.0 mg/dL (15.0-30.0)
[2018-06-30 00:39] LABS: ALT (SGPT) 22 U/L (8-55); AST (SGOT) 40 U/L (5-34); Albumin 4.2 g/dL (3.5-5.0); Alkaline Phosphatase 47 U/L (40-150); Anion Gap 17 mmol/L (10-20); BUN (Urea Nitrogen) 23 mg/dL (8.4-25.7); Bilirubin, Total 0.7 mg/dL (0.2-1.2); Calc. Creatinine Clearance 0 mL/min (70-130); Calcium 10.2 mg/dL (7.8-10.44); Carbon Dioxide 21 mmol/L (22-29); Chloride 101 mmol/L (98-107); Estimated GFR-MDRD 71; Globulin 4.2 g/dL (2.4-3.5); Glucose 98 mg/dL (70-105); Lipase 76 U/L (8-78); Potassium 3.8 mmol/L (3.5-5.1); Protein, Total 8.4 g/dL (6.0-8.3); Sodium 135 mmol/L (136-145)
[2018-06-30 02:38] LABS: Bilirubin Small (Negative); Blood, Urine Negative (Negative); Clarity CLEAR (Clear); Glucose, Urine (Dipstick) Negative (Negative); Leukocyte Negative (Negative); Nitrite Negative (Negative); Protein, Urine (Dipstick) Negative (Neg-Trace); Specific Gravity, Urine 1.027 (1.002-1.036); pH, Urine 5.5 (5.0-9.0)
[2018-06-30 02:53] LABS: Amphetamine Not Detected (NotDetected); Barbiturates Screen Not Detected (NotDetected); Benzodiazepine Screen Not Detected (NotDetected); Cocaine Metabolite Screen Not Detected (NotDetected); Medtox Control Line Valid? VALID (VALID); Medtox Reader # READER 1; Methadone Not Detected (NotDetected); Methamphetamine Not Detected (NotDetected); Opiate Screen Not Detected (NotDetected); Oxycodone Screen Not Detected (NotDetected); Phencyclidine (PCP) Not Detected (NotDetected); THC/Cannabinoid Screen Not Detected (NotDetected); Tricyclic Screen Not Detected (NotDetected)
[2018-06-30 03:44] LABS: Troponin I Less than 0.010 ng/mL (< 0.028)
[2018-06-30] MEDS ORDERED: Loratadine 10 MG TAB PO SCH (10:15)
[2018-06-30] MEDS ORDERED: OXcarbazepine 300 MG TAB PO SCH (10:30)
[2018-06-30] MEDS ORDERED: Levothyroxine 150 MCG TAB PO SCH (10:30)
[2018-06-30] MEDS ORDERED: Lisinopril 20 MG TAB PO SCH (10:30)
[2018-06-30] MEDS ORDERED: Hydrochlorothiazide 25 MG TAB PO SCH (10:30)
== END 2018-06-30 12:24 ==
LOC: ERS 22:22
DX: F29 Unspecified psychosis not due to a substance or known physiological condition (principal); R45.850 Homicidal ideations; Z71.6 Tobacco abuse counseling; E03.9 Hypothyroidism, unspecified; E11.9 Type 2 diabetes mellitus without complications; I10 Essential (primary) hypertension; F20.9 Schizophrenia, unspecified; F17.210 Nicotine dependence, cigarettes, uncomplicated; Z79.899 Other long term (current) drug therapy; Z79.82 Long term (current) use of aspirin
CPT/HCPCS: 36415; 71045; 80053; 80164; 80306; 80307; 81003; 83690; 83735; 84484; 85025; 93005; 99406

== ENCOUNTER 2018-08-03 22:35 | Emergency (ER) | payer OTHER ==
[2018-08-03 23:17] LABS: #Basophils 0.1 thou/uL (0.0-0.2); #Eosinphils 0.2 thou/uL (0.0-0.7); #Lymphocytes 2.3 thou/uL (1.20-3.40); #Monocytes 0.7 thou/uL (0.11-0.59); #Neutrophils 1.8 thou/uL (1.40-6.50); %Basophils 1.2 % (0.0-1.0); %Eosinophils 4.3 % (0.0-10.0); %Monocytes 13.6 % (0.0-10.0); %Neutrophils 35.9 % (42.0-75.0); Hemoglobin 11.2 g/dL (14.0-18.0); Mean Corpuscular HGB CONC 32.7 g/dL (32.0-36.0); Mean Corpuscular Hemoglobin 31.4 pg (27.0-31.0); Mean Corpuscular Volume 95.8 fL (78.0-98.0); Mean Platelet Volume 8.4 fL (7.4-10.4); Platelet Count 193 thou/uL (130-400); RBC Distribution Width 12.6 % (11.5-14.5); Red Blood Cell (RBC) Count 3.56 mill/uL (4.70-6.10)
[2018-08-03 23:43] LABS: ALT (SGPT) 19 U/L (8-55); AST (SGOT) 44 U/L (5-34); Acetaminophen Less than 6.0 mcg/mL (10.0-30.0); Albumin 3.9 g/dL (3.5-5.0); Alcohol Less than 10 mg/dL (Less than 10); Alkaline Phosphatase 49 U/L (40-150); Anion Gap 13 mmol/L (10-20); BUN (Urea Nitrogen) 29 mg/dL (8.4-25.7); Bilirubin, Total 0.6 mg/dL (0.2-1.2); Calc. Creatinine Clearance 0 mL/min (70-130); Calcium 9.8 mg/dL (7.8-10.44); Carbon Dioxide 25 mmol/L (22-29); Chloride 102 mmol/L (98-107); Estimated GFR-MDRD 64; Globulin 3.9 g/dL (2.4-3.5); Glucose 93 mg/dL (70-105); Potassium 4.1 mmol/L (3.5-5.1); Protein, Total 7.8 g/dL (6.0-8.3); Salicylate Less than 8.0 mg/dL (15.0-30.0); Sodium 136 mmol/L (136-145)
[2018-08-04 04:27] LABS: Bilirubin Negative (Negative); Blood, Urine Negative (Negative); Clarity CLEAR (Clear); Glucose, Urine (Dipstick) Negative (Negative); Leukocyte Negative (Negative); Nitrite Negative (Negative); Protein, Urine (Dipstick) Negative (Neg-Trace); Specific Gravity, Urine 1.017 (1.002-1.036); pH, Urine 6.5 (5.0-9.0)
[2018-08-04 04:36] LABS: Cocaine Metabolite Screen Not Detected (NotDetected); Medtox Reader # READER 1; Phencyclidine (PCP) Not Detected (NotDetected); THC/Cannabinoid Screen Not Detected (NotDetected)
[2018-08-04 04:37] LABS: Amphetamine Not Detected (NotDetected); Barbiturates Screen Not Detected (NotDetected); Benzodiazepine Screen Detected (NotDetected); Medtox Control Line Valid? VALID (VALID); Methadone Not Detected (NotDetected); Methamphetamine Not Detected (NotDetected); Opiate Screen Not Detected (NotDetected); Oxycodone Screen Not Detected (NotDetected); Tricyclic Screen Detected (NotDetected)
== END 2018-08-04 10:05 ==
LOC: ERS 22:35
DX: M65.4 Radial styloid tenosynovitis [de Quervain] (principal)
CPT/HCPCS: 36415; 80053; 80306; 80307; 81003; 82550; 84443; 85025; 93005; 96360

== ENCOUNTER 2018-08-11 13:38 | Emergency (ER) | payer OTHER | END 2018-08-11 19:27 | disposition home or self-care (01) | LOC: ERS 13:38 | DX: F10.129 Alcohol abuse with intoxication, unspecified (principal); E03.9 Hypothyroidism, unspecified; I20.9 Angina pectoris, unspecified; E11.9 Type 2 diabetes mellitus without complications; I10 Essential (primary) hypertension; F20.9 Schizophrenia, unspecified; F17.210 Nicotine dependence, cigarettes, uncomplicated; Z79.82 Long term (current) use of aspirin; Z86.19 Personal history of other infectious and parasitic diseases; Z79.899 Other long term (current) drug therapy | CPT/HCPCS: 99284 ==

== ENCOUNTER 2018-08-13 01:08 | Emergency (ER) | payer OTHER ==
--- NOTE | 2018-08-13 04:15 | RAD ---
XR Knee Lt 4 View STANDARD HISTORY: Knee pain COMPARISON: None. FINDINGS: There mild arthritic changes in the. There is spurring of the patellofemoral joint space. T here is also suggestion of some minimal medial compartment narrowing. No joint effusion or fracture. IMPRESSION: No acute findings.
== END 2018-08-13 01:51 | disposition home or self-care (01) ==
LOC: ERS 01:08
DX: M70.52 Other bursitis of knee, left knee (principal); E03.9 Hypothyroidism, unspecified; E11.9 Type 2 diabetes mellitus without complications; F17.210 Nicotine dependence, cigarettes, uncomplicated; F20.9 Schizophrenia, unspecified; Z79.899 Other long term (current) drug therapy; Z79.82 Long term (current) use of aspirin

== ENCOUNTER 2021-05-07 19:15 | Emergency (ER) | payer MEDICAID, OTHER, SELFPAY ==
[2021-05-07 20:07] LABS: #Basophils 0.1 thou/uL (0.0-0.2); #Eosinphils 0.2 thou/uL (0.0-0.7); #Lymphocytes 2.1 thou/uL (1.20-3.40); #Monocytes 0.6 thou/uL (0.11-0.59); %Basophils 1.3 % (0.0-1.0); %Eosinophils 2.7 % (0.0-10.0); %Lymphocytes 35.7 % (21.0-51.0); %Monocytes 9.8 % (0.0-10.0); %Neutrophils 50.6 % (42.0-75.0); Hemoglobin 13.1 g/dL (14.0-18.0); Mean Corpuscular HGB CONC 32.4 g/dL (32.0-36.0); Mean Corpuscular Hemoglobin 30.6 pg (27.0-31.0); Mean Corpuscular Volume 94.6 fL (78.0-98.0); Mean Platelet Volume 8.9 fL (7.4-10.4); Platelet Count 173 thou/uL (130-400); RBC Distribution Width 12.5 % (11.5-14.5); Red Blood Cell (RBC) Count 4.27 mill/uL (4.70-6.10)
[2021-05-07 20:13] LABS: ALT (SGPT) 65 U/L (8-55); AST (SGOT) 123 U/L (5-34); Albumin 4.2 g/dL (3.4-4.8); Alkaline Phosphatase 55 U/L (40-110); Anion Gap 15 mmol/L (10-20); BUN (Urea Nitrogen) 14 mg/dL (8.4-25.7); Bilirubin, Total 0.4 mg/dL (0.2-1.2); Calc. Creatinine Clearance 0 mL/min (70-130); Calcium 9.7 mg/dL (7.8-10.44); Carbon Dioxide 22 mmol/L (23-31); Chloride 102 mmol/L (98-107); Globulin 4.3 g/dL (2.4-3.5); Glucose 90 mg/dL (80-115); Potassium 4.1 mmol/L (3.5-5.1); Protein, Total 8.5 g/dL (5.8-8.1); Sodium 135 mmol/L (136-145)
[2021-05-07 20:14] LABS: Acetaminophen Less than 6.0 mcg/mL (10.0-30.0); Alcohol Less than 10 mg/dL (Less than 10); Salicylate Less than 8.0 mg/dL (15.0-30.0)
[2021-05-07 22:33] LABS: Bilirubin Negative (Negative); Blood, Urine Negative (Negative); Clarity Clear (Clear); Glucose, Urine (Dipstick) Normal (Negative); Ketone, Urine Negative (Negative); Leukocyte Negative Leu/uL (Negative); Nitrite Negative (Negative); Protein, Urine (Dipstick) 10 mg/dL (Neg-Trace); Specific Gravity, Urine 1.019 (1.002-1.036); Urobilinogen Normal mg/dL (Less than 2); pH, Urine 6.5 (5.0-9.0)
[2021-05-07 22:41] LABS: Amphetamine Not Detected (NotDetected); Barbiturates Screen Not Detected (NotDetected); Benzodiazepine Screen Not Detected (NotDetected); Cocaine Metabolite Screen Not Detected (NotDetected); Methadone Not Detected (NotDetected); Methamphetamine Not Detected (NotDetected); Opiate Screen Not Detected (NotDetected); Oxycodone Screen Not Detected (NotDetected); Phencyclidine (PCP) Not Detected (NotDetected); THC/Cannabinoid Screen Not Detected (NotDetected); Tricyclic Screen Not Detected (NotDetected)
[2021-05-08] MEDS ORDERED: hydrOXYzine 25 MG TAB ONE ×2 (01:52→01:54)
== END 2021-05-08 01:55 | disposition home or self-care (01) ==
LOC: ERS 19:15
DX: F20.9 Schizophrenia, unspecified (principal); I10 Essential (primary) hypertension; F17.200 Nicotine dependence, unspecified, uncomplicated
CPT/HCPCS: 36415; 80053; 80306; 80307; 81003; 84443; 85025; 93005; 94760

== ENCOUNTER 2021-05-11 17:53 | Emergency (ER) | payer MEDICAID ==
[2021-05-11 18:52] LABS: #Basophils 0.1 thou/uL (0.0-0.2); #Eosinphils 0.3 thou/uL (0.0-0.7); #Monocytes 0.7 thou/uL (0.11-0.59); #Neutrophils 2.8 thou/uL (1.40-6.50); %Basophils 1.8 % (0.0-1.0); %Eosinophils 4.4 % (0.0-10.0); %Lymphocytes 34.7 % (21.0-51.0); %Monocytes 11.1 % (0.0-10.0); Hemoglobin 12.4 g/dL (14.0-18.0); Mean Corpuscular Hemoglobin 31.4 pg (27.0-31.0); Mean Corpuscular Volume 95.2 fL (78.0-98.0); Mean Platelet Volume 8.3 fL (7.4-10.4); Platelet Count 149 thou/uL (130-400); RBC Distribution Width 12.4 % (11.5-14.5); Red Blood Cell (RBC) Count 3.95 mill/uL (4.70-6.10); White Blood Cell (WBC) Count 5.9 thou/uL (4.8-10.8)
[2021-05-11 19:13] LABS: ALT (SGPT) 43 U/L (8-55); AST (SGOT) 76 U/L (5-34); Acetaminophen Less than 6.0 mcg/mL (10.0-30.0); Alcohol Less than 10 mg/dL (Less than 10); Alkaline Phosphatase 53 U/L (40-110); Anion Gap 13 mmol/L (10-20); BUN (Urea Nitrogen) 19 mg/dL (8.4-25.7); Bilirubin, Total 0.7 mg/dL (0.2-1.2); Calc. Creatinine Clearance 0 mL/min (70-130); Calcium 9.8 mg/dL (7.8-10.44); Carbon Dioxide 23 mmol/L (23-31); Chloride 100 mmol/L (98-107); Globulin 4.1 g/dL (2.4-3.5); Glucose 104 mg/dL (80-115); Potassium 3.8 mmol/L (3.5-5.1); Protein, Total 8.1 g/dL (5.8-8.1); Salicylate Less than 8.0 mg/dL (15.0-30.0); Sodium 132 mmol/L (136-145)
[2021-05-11] MEDS ORDERED: Acetaminophen 500 MG TAB ONE (20:40)
[2021-05-11 21:15] LABS: Bilirubin Negative (Negative); Blood, Urine Negative (Negative); Clarity Clear (Clear); Glucose, Urine (Dipstick) Normal (Negative); Ketone, Urine Negative (Negative); Leukocyte Negative Leu/uL (Negative); Nitrite Negative (Negative); Protein, Urine (Dipstick) Negative (Neg-Trace); Specific Gravity, Urine 1.012 (1.002-1.036); Urobilinogen Normal mg/dL (Less than 2); pH, Urine 5.5 (5.0-9.0)
[2021-05-11 21:25] LABS: Amphetamine Not Detected (NotDetected); Barbiturates Screen Not Detected (NotDetected); Benzodiazepine Screen Not Detected (NotDetected); Cocaine Metabolite Screen Not Detected (NotDetected); Methadone Not Detected (NotDetected); Methamphetamine Not Detected (NotDetected); Opiate Screen Not Detected (NotDetected); Oxycodone Screen Not Detected (NotDetected); Phencyclidine (PCP) Not Detected (NotDetected); THC/Cannabinoid Screen Not Detected (NotDetected); Tricyclic Screen Not Detected (NotDetected)
[2021-05-11] MEDS ORDERED: traZODone HCl 50 MG TAB ONE (23:17)
[2021-05-11] MEDS ORDERED: cloNIDine 0.1 MG TAB ONE (23:59)
[2021-05-11] MEDS ORDERED: traZODone HCl 50 MG TAB PO SCH (23:59)
[2021-05-12] MEDS ORDERED: Hydrochlorothiazide 25 MG TAB PO SCH (00:15)
[2021-05-12] MEDS ORDERED: Lisinopril 20 MG TAB PO SCH (00:15)
== END 2021-05-12 12:52 ==
LOC: ERS 17:53
DX: R45.851 Suicidal ideations (principal); F17.200 Nicotine dependence, unspecified, uncomplicated; E03.9 Hypothyroidism, unspecified; E11.9 Type 2 diabetes mellitus without complications
CPT/HCPCS: 36415; 71045; 80053; 80306; 80307; 81003; 84484; 85025; 93005

== ENCOUNTER 2021-05-25 19:41 | Emergency (ER) | payer MEDICAID ==
[2021-05-25 20:42] LABS: #Eosinphils 0.2 thou/uL (0.0-0.7); #Lymphocytes 1.9 thou/uL (1.20-3.40); #Monocytes 0.5 thou/uL (0.11-0.59); #Neutrophils 1.7 thou/uL (1.40-6.50); %Basophils 0.9 % (0.0-1.0); %Eosinophils 4.5 % (0.0-10.0); %Lymphocytes 43.8 % (21.0-51.0); %Monocytes 11.6 % (0.0-10.0); %Neutrophils 39.2 % (42.0-75.0); Hemoglobin 11.5 g/dL (14.0-18.0); Mean Corpuscular HGB CONC 32.3 g/dL (32.0-36.0); Mean Corpuscular Hemoglobin 31.1 pg (27.0-31.0); Mean Corpuscular Volume 96.5 fL (78.0-98.0); Mean Platelet Volume 8.3 fL (7.4-10.4); Platelet Count 164 thou/uL (130-400); RBC Distribution Width 11.9 % (11.5-14.5); White Blood Cell (WBC) Count 4.4 thou/uL (4.8-10.8)
[2021-05-25 21:05] LABS: Acetaminophen Less than 6.0 mcg/mL (10.0-30.0); Alcohol 60 mg/dL (Less than 10); Salicylate Less than 8.0 mg/dL (15.0-30.0)
[2021-05-25 21:07] LABS: ALT (SGPT) 27 U/L (8-55); AST (SGOT) 45 U/L (5-34); Albumin 3.8 g/dL (3.4-4.8); Alkaline Phosphatase 52 U/L (40-110); Anion Gap 21 mmol/L (10-20); BUN (Urea Nitrogen) 15 mg/dL (8.4-25.7); Bilirubin, Total 0.5 mg/dL (0.2-1.2); Calc. Creatinine Clearance 0 mL/min (70-130); Calcium 9.2 mg/dL (7.8-10.44); Carbon Dioxide 13 mmol/L (23-31); Chloride 105 mmol/L (98-107); Globulin 3.6 g/dL (2.4-3.5); Glucose 121 mg/dL (80-115); Potassium 3.6 mmol/L (3.5-5.1); Protein, Total 7.4 g/dL (5.8-8.1); Sodium 135 mmol/L (136-145)
[2021-05-25 21:42] LABS: Bilirubin Negative (Negative); Blood, Urine Negative (Negative); Clarity Clear (Clear); Glucose, Urine (Dipstick) Normal (Negative); Ketone, Urine Negative (Negative); Leukocyte Negative Leu/uL (Negative); Nitrite Negative (Negative); Protein, Urine (Dipstick) Negative (Neg-Trace); Specific Gravity, Urine 1.006 (1.002-1.036); Urobilinogen Normal mg/dL (Less than 2); pH, Urine 5.5 (5.0-9.0)
[2021-05-25 21:51] LABS: Amphetamine Not Detected (NotDetected); Barbiturates Screen Not Detected (NotDetected); Benzodiazepine Screen Not Detected (NotDetected); Cocaine Metabolite Screen Not Detected (NotDetected); Methadone Not Detected (NotDetected); Methamphetamine Not Detected (NotDetected); Opiate Screen Not Detected (NotDetected); Oxycodone Screen Not Detected (NotDetected); Phencyclidine (PCP) Not Detected (NotDetected); THC/Cannabinoid Screen Not Detected (NotDetected); Tricyclic Screen Not Detected (NotDetected)
[2021-05-25] MEDS ORDERED: risperiDONE 1 MG TAB ONE (22:21)
[2021-05-25] MEDS ORDERED: traZODone HCl 50 MG TAB ONE (22:45)
[2021-05-26] MEDS ORDERED: Acetaminophen 325 MG TAB ONE (05:12)
[2021-05-26] MEDS ORDERED: Lorazepam 2 MG/ML VIAL ONE (08:06)
[2021-05-26] MEDS ORDERED: diphenhydrAMINE 50 MG/ML VIAL ONE (08:07)
[2021-05-26] MEDS ORDERED: Haloperidol Lactate 5 MG/ML VIAL ONE (08:07)
[2021-05-26] MEDS ORDERED: cefTRIAXone\\ROCEPHIN 1 GM VIAL ONE (09:22)
[2021-05-26 10:21] LABS: SARS-CoV-2 NAA Rapid Test Not Detected (NotDetected)
== END 2021-05-26 13:41 ==
LOC: ERS 19:41
DX: R44.2 Other hallucinations (principal); R45.850 Homicidal ideations; I44.0 Atrioventricular block, first degree; I12.9 Hypertensive chronic kidney disease with stage 1 through stage 4 chronic kidney disease, or unspecified chronic kidney disease; E11.22 Type 2 diabetes mellitus with diabetic chronic kidney disease; N18.9 Chronic kidney disease, unspecified; E03.9 Hypothyroidism, unspecified; F17.210 Nicotine dependence, cigarettes, uncomplicated; Z20.822 Contact with and (suspected) exposure to COVID-19; Z87.19 Personal history of other diseases of the digestive system
CPT/HCPCS: 36415; 71045; 80053; 80306; 80307; 81003; 84443; 84484; 85025; 93005; 96372; 96374; J0696; J1200; J1630; J2060; U0002

== ENCOUNTER 2021-12-10 01:34 | Emergency (ER) | payer OTHER, SELFPAY ==
[2021-12-10] MEDS ORDERED: Benzonatate 100 MG CAP PO SCH (02:15)
[2021-12-10 02:17] LABS: Hemoglobin 13.8 g/dL (14.0-18.0); Mean Corpuscular Hemoglobin 32.7 pg (27.0-31.0); Mean Corpuscular Volume 93.3 fL (78.0-98.0); Mean Platelet Volume 8.9 fL (7.4-10.4); Platelet Count 139 thou/uL (130-400); RBC Distribution Width 11.8 % (11.5-14.5); Red Blood Cell (RBC) Count 4.23 mill/uL (4.70-6.10); White Blood Cell (WBC) Count 3.9 thou/uL (4.8-10.8)
[2021-12-10 02:33] LABS: ALT (SGPT) 85 U/L (8-55); AST (SGOT) 76 U/L (5-34); Acetaminophen Less than 10.0 mcg/mL (10.0-30.0); Albumin 3.8 g/dL (3.4-4.8); Alcohol 57 mg/dL (Less than 10); Alkaline Phosphatase 65 U/L (40-110); Anion Gap 17 mmol/L (10-20); BUN (Urea Nitrogen) 11 mg/dL (8.4-25.7); Bilirubin, Total 0.4 mg/dL (0.2-1.2); Calc. Creatinine Clearance 0 mL/min (70-130); Calcium 9.6 mg/dL (7.8-10.44); Carbon Dioxide 19 mmol/L (23-31); Chloride 100 mmol/L (98-107); Estimated GFR 87; Globulin 3.6 g/dL (2.4-3.5); Glucose 123 mg/dL (80-115); Potassium 3.5 mmol/L (3.5-5.1); Protein, Total 7.4 g/dL (5.8-8.1); Salicylate Less than 8.0 mg/dL (15.0-30.0); Sodium 132 mmol/L (136-145)
[2021-12-10 02:46] LABS: Band 3 % (5-11); Eosinophils 5 % (0-10); Lymphocytes 56 % (21-51); MDiff Complete? YES; Monocytes 16 % (0-10); Neutrophil 19 % (42-75); Platelet Morphology Comment Appears Adequate; RBC Morphology Normal
[2021-12-10] MEDS ORDERED: Benzonatate 100 MG CAP ONE (05:47)
[2021-12-10 06:01] LABS: Bilirubin Negative (Negative); Blood, Urine Negative (Negative); Clarity Clear (Clear); Glucose, Urine (Dipstick) Normal (Negative); Ketone, Urine Negative (Negative); Leukocyte Negative Leu/uL (Negative); Nitrite Negative (Negative); Protein, Urine (Dipstick) Negative (Neg-Trace); Specific Gravity, Urine 1.006 (1.002-1.036); Urobilinogen Normal mg/dL (Less than 2); pH, Urine 5.5 (5.0-9.0)
[2021-12-10 06:07] LABS: Amphetamine Not Detected (NotDetected); Barbiturates Screen Not Detected (NotDetected); Benzodiazepine Screen Not Detected (NotDetected); Cocaine Metabolite Screen Not Detected (NotDetected); Methadone Not Detected (NotDetected); Methamphetamine Not Detected (NotDetected); Opiate Screen Not Detected (NotDetected); Oxycodone Screen Not Detected (NotDetected); Phencyclidine (PCP) Not Detected (NotDetected); THC/Cannabinoid Screen Not Detected (NotDetected); Tricyclic Screen Not Detected (NotDetected)
[2021-12-10 23:35] LABS: SARS-CoV-2 NAA Rapid Test Not Detected (NotDetected)
== END 2021-12-11 10:50 ==
LOC: ERS 01:34
DX: R45.851 Suicidal ideations (principal); E03.9 Hypothyroidism, unspecified; E11.9 Type 2 diabetes mellitus without complications; I10 Essential (primary) hypertension; F17.210 Nicotine dependence, cigarettes, uncomplicated; Z20.822 Contact with and (suspected) exposure to COVID-19
CPT/HCPCS: 36415; 80053; 80306; 80307; 81003; 85025; 99285; U0002

== ENCOUNTER 2022-01-05 18:19 | Emergency (ER) | payer OTHER | END 2022-01-05 18:59 | disposition home or self-care (01) | LOC: ERS 18:19 | DX: R25.1 Tremor, unspecified (principal); E03.9 Hypothyroidism, unspecified; E11.9 Type 2 diabetes mellitus without complications; I10 Essential (primary) hypertension; F17.210 Nicotine dependence, cigarettes, uncomplicated | CPT/HCPCS: 99284 ==

== ENCOUNTER 2022-01-07 17:37 | Emergency (ER) | payer OTHER | END 2022-01-07 18:51 | disposition home or self-care (01) | LOC: ERS 17:37 | DX: Z00.00 Encounter for general adult medical examination without abnormal findings (principal); I10 Essential (primary) hypertension; E11.9 Type 2 diabetes mellitus without complications | CPT/HCPCS: 99282 ==

== ENCOUNTER 2022-01-11 16:58 | Emergency (ER) | payer OTHER ==
[2022-01-11 17:59] LABS: Hemoglobin 12.2 g/dL (14.0-18.0); Mean Corpuscular Hemoglobin 30.2 pg (27.0-31.0); Mean Corpuscular Volume 94.2 fL (78.0-98.0); Mean Platelet Volume 8.7 fL (7.4-10.4); Platelet Count 160 thou/uL (130-400); RBC Distribution Width 12.2 % (11.5-14.5); Red Blood Cell (RBC) Count 4.05 mill/uL (4.70-6.10)
[2022-01-11 18:17] LABS: ALT (SGPT) 58 U/L (8-55); AST (SGOT) 51 U/L (5-34); Albumin 3.7 g/dL (3.4-4.8); Alkaline Phosphatase 59 U/L (40-110); Anion Gap 9 mmol/L (10-20); BUN (Urea Nitrogen) 14 mg/dL (8.4-25.7); Bilirubin, Total 0.5 mg/dL (0.2-1.2); Calc. Creatinine Clearance 0 mL/min (70-130); Carbon Dioxide 25 mmol/L (23-31); Chloride 103 mmol/L (98-107); Eosinophils 4 % (0-10); Estimated GFR 90; Globulin 3.3 g/dL (2.4-3.5); Glucose 101 mg/dL (80-115); Lymphocytes 53 % (21-51); MDiff Complete? YES; Monocytes 17 % (0-10); Neutrophil 24 % (42-75); Platelet Morphology Comment Appears Adequate; Polychromasia SLIGHT = 2-3 cells (100X) (0-2/hpf); Potassium 3.5 mmol/L (3.5-5.1); Reactive Lymphocytes 1 % (0-10); Sodium 133 mmol/L (136-145)
== END 2022-01-11 20:31 | disposition home or self-care (01) ==
LOC: ERS 16:58
DX: R07.9 Chest pain, unspecified (principal); E11.9 Type 2 diabetes mellitus without complications; F17.210 Nicotine dependence, cigarettes, uncomplicated
CPT/HCPCS: 36415; 71045; 80053; 84484; 85025; 93005

== ENCOUNTER 2022-01-19 06:22 | Emergency (ER) | payer OTHER | END 2022-01-19 08:40 | disposition home or self-care (01) | LOC: ERS 06:22 | DX: J20.9 Acute bronchitis, unspecified (principal); E03.9 Hypothyroidism, unspecified; E11.9 Type 2 diabetes mellitus without complications; I10 Essential (primary) hypertension; Z20.822 Contact with and (suspected) exposure to COVID-19 | CPT/HCPCS: 71045; 87804; 94640; U0003; U0005 ==

== ENCOUNTER → 2022-01-19 | Emergency (ER) | payer OTHER ==
[~2022-01-19] MED LIST: Acetaminophen 500 MG TAB ONE; Albuterol 200 PUFF (6.7GM INHALER) ONE; Hydrochlorothiazide 25 MG TAB PO SCH; Levothyroxine Sodium 75 MCG TAB PO SCH; Lisinopril 10 MG TAB ONE; Metoprolol Tartrate 25 MG TAB ONE; OXcarbazepine 300 MG TAB PO SCH; hydrOXYzine Pamoate 25 mg Capsule ONE; traZODone HCl 50 MG TAB ONE
[2022-01-19 20:54] LABS: #Eosinphils 0.1 thou/uL (0.0-0.7); #Lymphocytes 1.7 thou/uL (1.20-3.40); #Monocytes 0.6 thou/uL (0.11-0.59); #Neutrophils 2.8 thou/uL (1.40-6.50); %Basophils 0.9 % (0.0-1.0); %Eosinophils 1.9 % (0.0-10.0); %Monocytes 10.5 % (0.0-10.0); %Neutrophils 53.6 % (42.0-75.0); Hemoglobin 13.5 g/dL (14.0-18.0); Mean Corpuscular Volume 93.9 fL (78.0-98.0); Mean Platelet Volume 9.1 fL (7.4-10.4); Platelet Count 190 thou/uL (130-400); RBC Distribution Width 12.2 % (11.5-14.5); Red Blood Cell (RBC) Count 4.49 mill/uL (4.70-6.10); White Blood Cell (WBC) Count 5.3 thou/uL (4.8-10.8)
[2022-01-19 21:18] LABS: ALT (SGPT) 73 U/L (8-55); AST (SGOT) 63 U/L (5-34); Albumin 4.3 g/dL (3.4-4.8); Alkaline Phosphatase 65 U/L (40-110); Anion Gap 15 mmol/L (10-20); BUN (Urea Nitrogen) 13 mg/dL (8.4-25.7); Bilirubin, Total 0.5 mg/dL (0.2-1.2); Calc. Creatinine Clearance 0 mL/min (70-130); Calcium 9.8 mg/dL (7.8-10.44); Carbon Dioxide 23 mmol/L (23-31); Chloride 101 mmol/L (98-107); Estimated GFR 67; Glucose 92 mg/dL (80-115); Potassium 3.8 mmol/L (3.5-5.1); Protein, Total 8.3 g/dL (5.8-8.1); Sodium 135 mmol/L (136-145)
[2022-01-19 21:21] LABS: SARS-CoV-2 NAA Rapid Test Not Detected (NotDetected)
[2022-01-19 21:21] LABS: Acetaminophen Less than 10.0 mcg/mL (10.0-30.0); Alcohol Less than 10 mg/dL (Less than 10); Salicylate Less than 8.0 mg/dL (15.0-30.0)
[2022-01-19 21:24] LABS: Bacteria/HPF None Seen HPF (None Seen); Bilirubin Negative (Negative); Blood, Urine Negative (Negative); Clarity Clear (Clear); Glucose, Urine (Dipstick) Normal (Negative); Ketone, Urine Negative (Negative); Leukocyte Negative Leu/uL (Negative); Nitrite Negative (Negative); Protein, Urine (Dipstick) 30 mg/dL (Neg-Trace); RBC/HPF None Seen HPF (0-3); Squamous Epithelial 0-3 HPF (0-3); WBC/HPF 0-3 HPF (0-3)
[2022-01-19 21:32] LABS: Amphetamine Not Detected (NotDetected); Barbiturates Screen Not Detected (NotDetected); Benzodiazepine Screen Detected (NotDetected); Cocaine Metabolite Screen Not Detected (NotDetected); Methadone Not Detected (NotDetected); Methamphetamine Not Detected (NotDetected); Opiate Screen Not Detected (NotDetected); Oxycodone Screen Not Detected (NotDetected); Phencyclidine (PCP) Not Detected (NotDetected); THC/Cannabinoid Screen Not Detected (NotDetected); Tricyclic Screen Not Detected (NotDetected)
== END ==
LOC: ERS 20:11
DX: R45.851 Suicidal ideations (principal); Z20.822 Contact with and (suspected) exposure to COVID-19; Z79.899 Other long term (current) drug therapy; E03.9 Hypothyroidism, unspecified; E11.9 Type 2 diabetes mellitus without complications; I10 Essential (primary) hypertension
CPT/HCPCS: 36415; 71045; 80053; 80306; 80307; 81003; 81015; 84443; 85025; 87804; 93005; 94640; Q0177; U0002; U0003; U0005

== ENCOUNTER 2022-01-30 04:54 | Emergency (ER) | payer OTHER ==
[2022-01-30] MEDS ORDERED: Ondansetron ODT 4 MG TAB ONE (07:18)
[2022-01-30 08:12] LABS: #Basophils 0.1 thou/uL (0.0-0.2); #Eosinphils 0.3 thou/uL (0.0-0.7); #Lymphocytes 2.1 thou/uL (1.20-3.40); #Monocytes 0.7 thou/uL (0.11-0.59); #Neutrophils 1.7 thou/uL (1.40-6.50); %Basophils 2.2 % (0.0-1.0); %Eosinophils 6.8 % (0.0-10.0); %Lymphocytes 42.3 % (21.0-51.0); %Monocytes 14.1 % (0.0-10.0); %Neutrophils 34.6 % (42.0-75.0); Hemoglobin 13.5 g/dL (14.0-18.0); Mean Corpuscular HGB CONC 32.2 g/dL (32.0-36.0); Mean Corpuscular Hemoglobin 29.9 pg (27.0-31.0); Mean Corpuscular Volume 92.9 fl (78.0-98.0); Mean Platelet Volume 9.6 fL (7.4-10.4); Platelet Count 133 thou/uL (130-400); RBC Distribution Width 12.2 % (11.5-14.5); White Blood Cell (WBC) Count 4.9 thou/uL (4.8-10.8)
[2022-01-30 08:37] LABS: ALT (SGPT) 52 U/L (8-55); AST (SGOT) 45 U/L (5-34); Albumin 4.3 g/dL (3.4-4.8); Alkaline Phosphatase 67 U/L (40-110); Anion Gap 13 mmol/L (10-20); BUN (Urea Nitrogen) 19 mg/dL (8.4-25.7); Bilirubin, Total 0.7 mg/dL (0.2-1.2); CK (CPK) 692 U/L (30-200); Calc. Creatinine Clearance 0 mL/min (70-130); Calcium 10.3 mg/dL (7.8-10.44); Carbon Dioxide 26 mmol/L (23-31); Chloride 98 mmol/L (98-107); Estimated GFR 61; Globulin 3.7 g/dL (2.4-3.5); Glucose 100 mg/dL (80-115); Lipase 56 U/L (8-78); Potassium 4.7 mmol/L (3.5-5.1); Sodium 132 mmol/L (136-145)
[2022-01-30] MEDS ORDERED: Acetaminophen 500 MG TAB ONE (09:48)
== END 2022-01-30 11:21 | disposition home or self-care (01) ==
LOC: ERS 04:54
DX: R11.10 Vomiting, unspecified (principal); E03.9 Hypothyroidism, unspecified; E11.9 Type 2 diabetes mellitus without complications; I10 Essential (primary) hypertension; F17.210 Nicotine dependence, cigarettes, uncomplicated
CPT/HCPCS: 36415; 80053; 82274; 82550; 83690; 84484; 85025; 93005; Q0162